=== PATIENT | female | born 1955 | race Two or more races ===

== ENCOUNTER → 2021-05-07 | Outpatient (CLI) | payer BC ==
[2021-05-07 09:11] LABS: Basophils # (auto) 0.1 10 ^3/uL (0-0.2); Basophils % (auto) 1.3 % (0.0-2.0); Eosinophils # (auto) 0.1 10 ^3/uL (0-0.8); Eosinophils % (auto) 3.3 % (0.0-7.0); Hematocrit 40.9 % (36.0-46.0); Hemoglobin 14.1 g/dL (12.2-16.2); Lymphocytes # (auto) 1.6 10 ^3/uL (0.4-5.4); Lymphocytes % (auto) 35.1 % (10.0-50.0); Mean Corpuscular Hemoglobin 33.3 pg (28.0-32.0); Mean Corpuscular Hgb Conc. 34.6 g/dL (32.0-36.0); Mean Corpuscular Volume 96.3 fL (80.0-100.0); Monocytes # (auto) 0.5 10 ^3/uL (0-1.3); Monocytes % (auto) 10.4 % (0.0-12.0); Neutrophils # (auto) 2.2 10 ^3/uL (1.6-8.6); Neutrophils % (auto) 49.9 % (37.0-80.0); Red Blood Cells 4.25 10^6/uL (4.0-5.20); Red Cell Distribution Width 13.3 % (11.8-14.3); White Blood Cell 4.4 10^3/uL (4.4-10.8)
[2021-05-07 09:18] LABS: Urine Bacteria NONE SEEN /hpf (None Seen); Urine Blood Negative /uL (Negative); Urine Mucus FEW (None Seen); Urine Specific Gravity 1.028 (1.001-1.035); Urine WBC 2 /hpf (0 - 5)
[2021-05-07 09:37] LABS: Potassium 4.2 mmol/L (3.5-5.1)
[2021-05-07 09:47] LABS: Albumin 3.5 g/dL (3.4-5.0); BUN/Creatinine Ratio 19.4; Bilirubin, Total 0.5 mg/dL (0.2-1.0); Calcium 9.3 mg/dL (8.5-10.1); Total Protein 7.2 g/dL (6.4-8.2)
== END | disposition home or self-care (01) ==
LOC: LAB 08:32
PROVIDERS: ATTEND Student in an Organized Health Care Education/Training Program
DX: Z12.11 Encounter for screening for malignant neoplasm of colon (principal); I10 Essential (primary) hypertension; R73.9 Hyperglycemia, unspecified
CPT/HCPCS: 36415; 80053; 80061; 81001; 82274; 83036; 84439; 84443; 85025

== ENCOUNTER 2023-04-19 11:48 | Inpatient (IN) | payer BC, MEDICARE ==
[~2023-04-19] VITALS: Ht 154.9 cm; Wt 60.0 kg
[2023-04-19] MEDS ORDERED: SODIUM CHLORIDE 0.9% 1,000 ML IV ONE (12:30)
[2023-04-19] MEDS ORDERED: METR375C PO ×2 (13:37)
[2023-04-19] MEDS ORDERED: ZOFR4T PO ×2 (13:37)
[2023-04-19 14:02] LABS: Basophils # (auto) 0.1 10 ^3/uL (0-0.2); Basophils % (auto) 0.6 % (0.0-2.0); Eosinophils # (auto) 0 10 ^3/uL (0-0.8); Eosinophils % (auto) 0.2 % (0.0-7.0); Hematocrit 40.9 % (36.0-46.0); Hemoglobin 14.1 g/dL (12.2-16.2); Lymphocytes # (auto) 1.1 10 ^3/uL (0.4-5.4); Lymphocytes % (auto) 11.7 % (10.0-50.0); Mean Corpuscular Hemoglobin 33.6 pg (28.0-32.0); Mean Corpuscular Hgb Conc. 34.5 g/dL (32.0-36.0); Mean Corpuscular Volume 97.3 fL (80.0-100.0); Monocytes # (auto) 0.5 10 ^3/uL (0-1.3); Monocytes % (auto) 5.5 % (0.0-12.0); Neutrophils # (auto) 7.7 10 ^3/uL (1.6-8.6); Red Blood Cells 4.21 10^6/uL (4.0-5.20); Red Cell Distribution Width 12.6 % (11.8-14.3); White Blood Cell 9.4 10^3/uL (4.4-10.8)
[2023-04-19 14:30] LABS: Albumin 3.8 g/dL (3.4-5.0); BUN/Creatinine Ratio 14.9 (10.0-20.0)
[2023-04-19 14:33] LABS: Bilirubin, Total 0.8 mg/dL (0.2-1.0); Total Protein 6.7 g/dL (6.4-8.2)
[2023-04-19] MEDS ORDERED: ENOXAPARIN SOD 60 MG/0.6 ML SYRINGE SC ONE (14:45)
[2023-04-19 16:23] LABS: Urine Bacteria FEW /hpf (None Seen); Urine Blood Negative /uL (Negative); Urine Specific Gravity 1.013 (1.001-1.035); Urine WBC 1 /hpf (0 - 5)
[2023-04-19 16:43] VITALS: PULSE 69; RESP 16; O2SAT 98
[2023-04-19] MEDS ORDERED: ACETAMINOPHEN 325 MG TAB PO PRN (16:45)
[2023-04-19] MEDS ORDERED: CLOPIDOGREL BISULFATE 75 MG TAB PO SCH (16:45)
[2023-04-19] MEDS ORDERED: ATORVASTATIN 20 MG TAB PO SCH (16:45)
[2023-04-19] MEDS ORDERED: DOCUSATE SOD 100 MG CAP PO PRN (16:45)
[2023-04-19] MEDS ORDERED: ONDANSETRON HCL 4 MG/2 ML VIAL IV PRN (16:45)
[2023-04-19] MEDS ORDERED: NITROGLYCERIN 0.4 MG SL TAB SL PRN (16:45)
[2023-04-19] MEDS ORDERED: HYDROmorphone HCL 2 MG/ML VL/or syr IV PRN (16:45)
[2023-04-19] MEDS ORDERED: HYDROcodone-ACET 5/325MG TAB PO PRN (16:45)
[2023-04-19] MEDS ORDERED: ASPirin-EC 325mg tab PO ONE (16:45)
[2023-04-19] MEDS ORDERED: MORPHINE SULFATE INJ 2 MG/ml SYRG IV PRN (16:45)
[2023-04-19] MEDS: METOPROLOL TARTRATE 25 MG TAB PO SCH ×2 (17:26→21:52)
[2023-04-19 17:46] LABS: Cholesterol 197 mg/dL (< 200)
[2023-04-19 17:49] LABS: HDL Cholesterol 71 mg/dL (40-59); LDL Cholesterol 109 mg/dL (< 100); Triglycerides 83 mg/dL (< 150)
[2023-04-19] MEDS ORDERED: HYDR12.59 PO (18:29)
[2023-04-19] MEDS ORDERED: ESCI1TAB36 PO (18:30)
[2023-04-19] MEDS ORDERED: LISI40TA16 PO (18:30)
[2023-04-19 19:35] VITALS: PULSE 70; RESP 16; O2SAT 95
[2023-04-19 21:16] LABS: INR 1.1 (0.9-1.15); Partial Thromboplastin Time 34.8 SEC (24.5-34.5)
[2023-04-19] MEDS: SODIUM CHLOR 0.9% PF (SALINE LOCK) 10ML VIAL/SYR IV SCH (21:52)
[2023-04-19] MEDS ORDERED: ENOXAPARIN SOD 60 MG/0.6 ML SYRINGE SC SCH (22:00)
[2023-04-20] VITALS (8 sets, daily range): BP systolic 103–121; BP diastolic 65–73; PULSE 60–75; RESP 15–19; TEMP 98; O2SAT 93–96
[2023-04-20] MEDS: SODIUM CHLOR 0.9% PF (SALINE LOCK) 10ML VIAL/SYR IV SCH (05:36)
[2023-04-20] MEDS ORDERED: ASPirin-EC 81 mg tab PO SCH (10:00)
[2023-04-20] MEDS ORDERED: IODIXANOL 320MG/ML 100ML BTL IV ONE (11:32)
[2023-04-20] MEDS ORDERED: LIDOCAINE 2%HCL (LOCAL ANESTH.) INJ 20ML MDV ONE (11:32)
[2023-04-20] MEDS ORDERED: ANGIOMAX 250 MG VIAL IV ONE (11:37)
[2023-04-20] MEDS ORDERED: fentaNYL CITRATE 100 MCG/2 ML VL ONE (11:38)
[2023-04-20] MEDS ORDERED: SODIUM CHL 0.9% 0 ML ONE (11:38)
[2023-04-20] MEDS ORDERED: VERAPAMIL 2.5MG/ML INJ 2ML VIAL IV ONE (11:38)
[2023-04-20] MEDS ORDERED: MIDAZOLAM HCL 2MG/2ML 2ml VIAL (1mg/ml) ONE (11:38)
[2023-04-20] MEDS ORDERED: HEPARIN SODIUM (PORCINE) 5000 UNITS/ML 1ML VIAL ONE (11:38)
[2023-04-20] MEDS ORDERED: NITROGLYCERIN 5MG/ML 10ML VIAL IV ONE (11:42)
[2023-04-20] MEDS ORDERED: SODIUM CHL 0.9% 50 ML ONE (11:42)
[2023-04-20] MEDS ORDERED: FLUT1SPR5 (14:13)
== END 2023-04-20 14:46 | disposition home or self-care (01) | DRG 282 ==
LOC: ER 11:48 → EDBD 11:48 → TELE 16:48 → TELE-EAST 04-20 10:38
PROVIDERS: ADMIT Internal Medicine; ATTEND Student in an Organized Health Care Education/Training Program
PROC: 4A023N7 Measurement of Cardiac Sampling and Pressure, Left Heart, Percutaneous Approach (ICD-10-PCS; principal; 2023-04-20)
PROC: B211YZZ Fluoroscopy of Multiple Coronary Arteries using Other Contrast (ICD-10-PCS; 2023-04-20)
DX: I21.4 Non-ST elevation (NSTEMI) myocardial infarction (principal); K52.9 Noninfective gastroenteritis and colitis, unspecified; I10 Essential (primary) hypertension; F41.9 Anxiety disorder, unspecified; K21.9 Gastro-esophageal reflux disease without esophagitis; I25.10 Atherosclerotic heart disease of native coronary artery without angina pectoris; Z90.49 Acquired absence of other specified parts of digestive tract; Z88.0 Allergy status to penicillin
CPT/HCPCS: 36415; 71045; 80053; 80061; 81001; 84484; 85025; 85610; 85730; 93005; 93306; 93458; 96360; 96372; 99152; 99153; G0378; J2250; J3490; Q9967

== ENCOUNTER 2023-12-01 10:07 | Emergency (ER) | payer MEDICARE ==
[~2023-12-01] VITALS: Ht 154.9 cm; Wt 55.6 kg
[~2023-12-01 10:07] MED LIST: ESCI1TAB36 PO; FLUT1SPR5; HYDR12.59 PO; LISI40TA16 PO
[2023-12-01 10:11] VITALS: TEMP 97.9
[2023-12-01 10:13] VITALS: BP 158/92; PULSE 79; RESP 16; O2SAT 98
[2023-12-01] MEDS: cefTRIAXone SOD 1,000 MG VL IM ONE (11:46)
[2023-12-01] MEDS ORDERED: CLIN300C70 PO (12:21)
== END 2023-12-01 12:25 | disposition home or self-care (01) ==
LOC: ER 10:07
DX: L03.114 Cellulitis of left upper limb (principal); I10 Essential (primary) hypertension; Z90.49 Acquired absence of other specified parts of digestive tract; Z88.0 Allergy status to penicillin; W55.01XA Bitten by cat, initial encounter; Y93.89 Activity, other specified; Y92.89 Other specified places as the place of occurrence of the external cause; Y99.8 Other external cause status
CPT/HCPCS: 96372; 99283; J0696

== ENCOUNTER 2024-06-03 15:08 | Emergency (ER) | payer MEDICARE ==
[~2024-06-03] VITALS: Ht 154.9 cm; Wt 57.0 kg
[~2024-06-03 15:08] MED LIST changes: +ATOR20TA PO; -ESCI1TAB36 PO; -FLUT1SPR5; -HYDR12.59 PO; +LISI-275 PO; -LISI40TA16 PO
[2024-06-03 15:26] VITALS: BP 131/80; PULSE 91; RESP 18; O2SAT 97
[2024-06-03 16:14] LABS: Urine Bacteria FEW /hpf (None Seen); Urine Blood Negative /uL (Negative); Urine Clarity Clear (Clear); Urine Protein, UAD Negative (Negative); Urine Specific Gravity 1.004 (1.001-1.035); Urine Urobilinogen Normal (Negative); Urine WBC 5 /hpf (0 - 5)
[2024-06-03 16:17] LABS: Urine Color Light-Yellow (Yellow)
[2024-06-03] MEDS ORDERED: NITR-52 PO (16:44)
== END 2024-06-03 17:54 | disposition home or self-care (01) ==
LOC: ER 15:08
DX: N39.0 Urinary tract infection, site not specified (principal); E78.5 Hyperlipidemia, unspecified; I10 Essential (primary) hypertension; Z90.49 Acquired absence of other specified parts of digestive tract; Z88.0 Allergy status to penicillin
CPT/HCPCS: 81001

== ENCOUNTER 2024-11-08 11:56 | Inpatient (IN) | payer MEDICARE ==
[~2024-11-08] VITALS: Ht 154.9 cm; Wt 67.7 kg
[~2024-11-08 11:56] MED LIST changes: +NITR-52 PO
--- NOTE | 2024-11-08 13:15 | ED.PDOC ---
Musculoskeletal HPI Comments History of hyperlipidemia and hypertension presents with a chief complaint of a possible fracture to the right ankle. Cause of injury: Patient reports being thrown off a horse then having her right foot and hearing a snap Pain rated 10/10 Not able to bear weight Denies previous surgeries to the ankle Denies redness or swelling around the ankle Denies fever chills night sweats nausea vomiting Chief Complaint: Lower Extremity Time Seen by MD: 12:40 Primary Care Provider: SINGH Reviewed Notes: Nurses Notes, Medications, Allergies Allergies: Coded Allergies: Penicillins (Verified Allergy, Severe, 04/19/23) Home Meds Active Scripts Nitrofurantoin (Nitrofurantoin) 100 Mg Cap, 1 CAP PO BID for 5 Days, #10 CAP Prov:AUDREY HULL PAC 06/03/24 Reported Medications Ezetimibe (Zetia) 10 Mg Tab, 1 TAB PO DAILY, #30 TAB 5 Refills 11/09/24 Lisinopril (Lisinopril) 20 Mg Tab, 10 MG PO DAILY, TAB 11/09/24 Discontinued Reported Medications Atorvastatin Calcium (Lipitor) 20 Mg Tab, 20 MG PO DAILY, TAB 12/14/23 Lisinopril (Lisinopril) 5 Mg Tab, 5 MG PO DAILY, TAB 12/14/23 Mode of Arrival: Wheelchair Past Medical History PAST MEDICAL HISTORY: High Lipids, HTN Surgical History: Cholecystectomy WASHER [place] History: Denies all WASHER [place] Hx Family History Family History: Unknown Social History Smoker: Non-Smoker Alcohol: Denies ETOH Use Drugs: Denies Drug Use Lives In: Home Physical Exam General Appearance: No Apparent Distress, Normal HEENT: Normal ENT Inspection, Pharynx Normal, TMs Normal Neck: Full Range of Motion, Non-Tender, Normal, Normal Inspection Respiratory: Chest Non-Tender, Lungs Clear, No Accessory Muscle Use, No Respiratory Distress, Normal Breath Sounds Cardiovascular: No Edema, No JVD, No Murmur, No Gallop, Normal Peripheral Pulses, Regular Rate/Rhythm Breast Exam: Deferred Gastrointestinal: No Organomegaly, Non Tender, No Pulsatile Mass, Normal Bowel Sounds, Soft Genitalia: Deferred Pelvic: Deferred Rectal: Deferred Extremities: No calf tenderness, Normal capillary refill, Normal inspection, Normal range of motion, Non-tender, No pedal edema Musculoskeletal : Location: Right Extremity Location: Ankle (He has deformity to the lateral malleolus. Tenderness to palpation. Pain with dorsiflexion plantar flexion. Dorsalis pedis 2+. Distal neuro sensation intact) Apperance: Normal Neurologic: Alert, mems process engineer II-XII nml as Tested, No Motor Deficits, Normal Affect, Normal Mood, No Sensory Deficits Cerebellar Function: Normal Reflexes: Normal Skin: Dry, Normal Color, Warm Lymphatic: No Adenopathy Was a procedure done? Was a procedure done?: No Differential Diagnosis EXT Differential Diagnosis: Fracture, Sprain, Dislocation X-Ray, Labs, Meds, VS Vital Signs Date Time Temp Pulse Resp B/P (MAP) Pulse Ox O2 Delivery O2 Flow Rate FiO2 11/08/24 18:47 78 16 122/84 11/08/24 18:04 85 16 126/76 11/08/24 14:57 79 16 127/68 11/08/24 13:47 88 17 111/78 11/08/24 13:04 87 17 97 Room Air 11/08/24 13:04 98.1 87 17 117/77 (90) 97 98.1 11/08/24 12:15 97.7 91 20 107/81 (90) 98 Current Medications Medications (Trade) Dose Ordered Sig/Finn Route Start Time Stop Time Status Last Admin Morphine Sulfate 2 mg ONCE ONCE IM 11/08/24 13:15 11/08/24 17:58 DC 11/08/24 13:47 Lidocaine HCl (Xylocaine 1%) 10 ml ONCE ONCE IJ 11/08/24 15:00 11/08/24 15:02 DC 11/08/24 15:15 Hydromorphone HCl (Dilaudid Injection) 0.25 mg ONCE ONCE IM 11/08/24 18:00 11/08/24 18:01 DC 11/08/24 18:04 PATIENT: BOO ARORA CACCT: [id number]: [id number] : 1955 LOC: ER ROOM / BED: / AGE / SEX: 68 / F ADM STATUS: REG ER SERVICE 1312 ORDERING PHYSICIAN: LUCIO ALVARENGA NP PROCEDURE(s): RANCT - CT R ANKLE WO CONTRAST REASON: fall from horse ORDER NUMBER(s): [id number], ACCESSION NUMBER(s): [id number] CLINICAL INDICATION: 68 years old, Female; fall from horse. TECHNIQUE: Noncontrast CT of the right ankle was performed. Sagittal and coronal reformatted images are provided. COMPARISON: None CT Dose: CTDI volume is 7.8 mGy. Dose-length product is 191.2 mGy*cm FINDINGS: Acute comminuted lateral and medial malleolus fractures and posterior malleolar fracture. There is disruption of the ankle mortise and lateral translation of the talus relative to the tibial performed compatible with dislocation. Ankle joint effusion and significant soft tissue swelling / hemorrhage in the ankle. Small foci of gas in the soft tissues. IMPRESSION: 1. Acute trimalleolar fracture and ankle joint dislocation. All CT scans at this medical facility are performed using dose modulation techniques as appropriate to a performed exam including the following: Automated exposure control was utilized; adjustment of the MA and/or KV according to patient size; and use of iterative reconstruction technique. HS:Y ATED BY: PHILL FAYE MD DICTATED DATE/TIME: 11/08/241335 SIGNED BY: PHILL FAYE MD SIGNED DATE/TIME: 11/08/241335 CC: X-Ray, Labs, Meds, VS Comment CT findings show: 1. Acute trimalleolar fracture and ankle joint dislocation. 1405: Consulted with ortho Dr Gao. Accepted patient for surgery. 1411: Dr. Gao called and stated ortho will reduce ankle at bedside 1615: Javon (orthodontic assistant at bedside) states Dr Gao requested splint and will reduce during surgery tomorrow Patients work up was remarkable for Acute trimalleolar fracture and ankle joint dislocation. The patient's workup reveals that the patient needs further evaluation and/or treatment for the above medical conditions. Patient verbalized understanding of the above and is awaiting further evaluation by the admitting service. Time of 1ST Reevaluation: 14:10 Reevaluation 1ST: Improved Patient Education/Counseling: Diagnosis, Treatment Family Education/Counseling: Diagnosis, Treatment Departure 1 Departure Time of Disposition: 16:17 Impression: Primary Impression: Trimalleolar fracture Qualified Codes: S82.851A - Displaced trimalleolar fracture of right lower leg, initial encounter for closed fracture Disposition: ADMITTED INPATIENT Condition: Fair Critical Care Note Critical Care Time?: No Stability Stability form required: No Heart Score Heart Score: Heart Score Response (Comments) Value History N/A 0 EKG N/A 0 Age N/A 0 Risk Factors N/A 0 Troponin N/A 0 Total 0 LUCIO ALVARENGA NP Nov 08, 2024 13:15
--- NOTE | 2024-11-08 13:39 | DVH ---
CLINICAL INDICATION: 68 years old, Female; fall from horse. TECHNIQUE: Noncontrast CT of the right ankle was performed. Sagittal and coronal reformatted images a re provided. COMPARISON: None CT Dose: CTDI volume is 7.8 mGy. Dose-length product is 191.2 mGy*cm FINDINGS: Acute comminuted lateral and medial malleolus fractures and posterior malleolar fracture. There is d isruption of the ankle mortise and lateral translation of the talus relative to the tibial performed compatible with dislocation. Ankle joint effusion and significant soft tissue swelling / hemorrhage i n the ankle. Small foci of gas in the soft tissues. IMPRESSION: 1. Acute trimalleolar fracture and ankle joint dislocation. All CT scans at this medical facility are performed using dose modulation techniques as appropriate t o a performed exam including the following: Automated exposure control was utilized; adjustment of th e MA and/or KV according to patient size; and use of iterative reconstruction technique. HS:Y
--- NOTE | 2024-11-08 13:41 | DVH ---
EXAM: CT HEAD WITHOUT CONTRAST INDICATION: fall from horse TECHNIQUE: CT of the head without intravenous contrast. Radiation Dose : 1. Head: CT Dose: CTDI volume is 56 mGy. Dose-length product is 999.8 mGy*cm The dose indicators for CT are the volume Computed Tomography (CT) Dose Index (CTDIvol) and the Dose Length Product (DLP), and are measured in units of mGy and mGy-cm, respectively. These indicators are not patient dose, but values generated from the CT scanner acquisition factors. The report includes radiation exposure data for exposures received during this examination. COMPARISON: None FINDINGS: There is no evidence of acute intracranial hemorrhage, extra-axial collection, mass effect, midline s hift, herniation or hydrocephalus. The ventricles, sulci and cisterns are age appropriate. The bailey-white differentiation is intact. Patchy periventricular and subcortical white matter hypoattenuation is nonspecific but may be related to small vessel ischemic disease. The visualized paranasal sinuses and mastoid air cells are clear. The surrounding soft tissues and osseous structures are unremarkable. IMPRESSION: No acute intracranial abnormality. Radiation optimization: All CT scans at this facility use at least one of these dose optimization anabelle hniques: automated exposure control mA and/or kV adjustment per patient size (includes targeted exam s where dose is matched to clinical indication) or iterative reconstruction.
[2024-11-08] MEDS: MORPHINE SULFATE INJ 2 MG/ml SYRG IM ONE (13:47)
[2024-11-08] MEDS: LIDOCAINE 1% HCL (LOCAL ANESTH.) INJ 20ML MDV IJ ONE (15:15)
[2024-11-08] MEDS: HYDROmorphone HCL 2 MG/ML VL/or syr IV ONE (17:59)
[2024-11-08] MEDS: HYDROmorphone HCL 2 MG/ML VL/or syr IM ONE ×2 (18:04→21:52)
[2024-11-08] MEDS: SODIUM CHLORIDE 0.9% 1,000 ML IV ONE (21:53)
[2024-11-08 22:05] LABS: Basophils # (auto) 0.1 10 ^3/uL (0-0.2); Basophils % (auto) 0.7 % (0.0-2.0); Eosinophils # (auto) 0 10 ^3/uL (0-0.8); Eosinophils % (auto) 0.3 % (0.0-7.0); Hematocrit 39.6 % (36.0-46.0); Hemoglobin 13.4 g/dL (12.2-16.2); Lymphocytes # (auto) 2.4 10 ^3/uL (0.4-5.4); Lymphocytes % (auto) 30.1 % (10.0-50.0); Mean Corpuscular Hemoglobin 31.9 pg (28.0-32.0); Mean Corpuscular Hgb Conc. 33.9 g/dL (32.0-36.0); Monocytes # (auto) 0.8 10 ^3/uL (0-1.3); Monocytes % (auto) 10.1 % (0.0-12.0); Neutrophils # (auto) 4.7 10 ^3/uL (1.6-8.6); Neutrophils % (auto) 58.8 % (37.0-80.0); Nucleated Red Blood Cells % 0.1 %; Platelet Count (auto) 316 10^3/uL (140-450); Red Blood Cells 4.21 10^6/uL (4.0-5.20); Red Cell Distribution Width 13.4 % (11.8-14.3)
[2024-11-08 22:16] LABS: Alanine Aminotransferase 25 U/L (7-40); Albumin 4.1 g/dL (3.2-4.8); Alkaline Phosphatase 51 U/L (46-116); Aspartate Aminotransferase 24 U/L (13-40); BUN/Creatinine Ratio 12.7 (10.0-20.0); Bilirubin, Total 0.7 mg/dL (0.2-1.0); Calcium 9.5 mg/dL (8.7-10.4); Chloride 105 mmol/L (98-107); Sodium 140 mmol/L (136-145); Total Protein 6.1 g/dL (5.7-8.2)
[2024-11-08 22:22] LABS: Anion Gap 10 (5-15); Carbon Dioxide 25 mmol/L (20-31)
[2024-11-08 22:39] LABS: Blood Urea Nitrogen 8 mg/dL (9-23); Glucose 125 mg/dL (74-106); Potassium 3.3 mmol/L (3.5-5.1)
[2024-11-09] VITALS (11 sets, daily range): BP systolic 105–127; BP diastolic 55–74; PULSE 75–91; RESP 16–20; TEMP 98–99.2; O2SAT 93–100
--- NOTE | 2024-11-09 00:09 | DVHHPRES ---
History of Present Illness Resident Creating Document: KELLEE REZA RESIDENT Reason for Visit: Right ankle injury History of Present Illness A 68-year-old female with a history of hyperlipidemia and hypertension presented to the emergency department with significant right ankle pain following a fall from a horse. She states that she was thrown off and landed on her right foot, at which point she heard a snapping sound. She rates the pain as 10/10 and is unable to bear weight. She denies any prior surgical history involving the ankle, as well as any associated redness, swelling, fever, chills, night sweats, nausea, or vomiting. Medical History: Chronic conditions: Hyperlipidemia, hypertension. Surgeries: Cholecystectomy. Gynecological History: Denies any gynecological surgeries. Home Medications: Atorvastatin 20 mg PO daily Lisinopril 5 mg PO daily Recent Prescriptions: Nitrofurantoin 100 mg PO BID for 5 days (prescribed 06/03/24) Allergies: Penicillin Imaging and Diagnostic Findings: A non-contrast CT of the right ankle revealed: Comminuted fractures of the lateral and medial malleoli, with an additional posterior malleolar fracture. Disruption of the ankle mortise with lateral displacement of the talus relative to the tibia, consistent with ankle dislocation. Joint effusion, extensive soft tissue swelling, and hemorrhage in the ankle. Presence of small gas pockets within the soft tissues. Impression: Acute trimalleolar fracture with ankle joint dislocation. Review of Systems Constitutional: No: Fever, Chills, Sweats, Weakness, Malaise, Other Eyes: No: Pain, Vision change, Conjunctivae inflammation, Eyelid inflammation, Other, Redness ENT: No: Ear pain, Ear discharge, Nose pain, Nose discharge, Nose congestion, Mouth pain, Mouth swelling, Throat pain, Throat swelling, Other Respiratory: No: Cough, Dry, Shortness of breath, SOB with excertion, Wheezing, Hemoptysis, Pleuritic Pain, Sputum, Wheezing, Other Cardiovascular: No: Chest Pain, Palpitations, Orthopnea, Paroxysmal Noc. Dyspnea, Edema, Lt Headedness, Other Gastrointestinal: No: Nausea, Vomiting, Abdominal Pain, Diarrhea, Constipation, Melena, Hematochezia, Other Genitourinary: No Dysuria, No Frequency, No Incontinence, No Hematuria, No Retention, No Other Musculoskeletal: No: other, neck pain, shoulder pain, arm pain, back pain, hand pain, leg pain, foot pain Skin: No: Rash, Lesions, Jaundice, Bruising, Other Neurological: No: Weakness, Numbness, Incoordination, Change in speech, Confusion, Seizures, Other Allergies: Coded Allergies: Penicillins (Verified Allergy, Severe, 04/19/23) Exam Vital Signs Vital Signs Date Time Temp Pulse Resp B/P (MAP) Pulse Ox O2 Delivery O2 Flow Rate FiO2 11/08/24 23:59 98.6 81 14 113/64 (80) 96 98.6 11/08/24 13:04 Room Air General Appearance: Alert, Oriented X3, Cooperative, moderate distress HEENT: Atraumatic, PERRLA, EOMI, Mucous membr. moist/pink Respiratory: Clear to auscultation, Normal air movement Cardiovascular: Regular rate, Normal S1, Normal S2 Abdominal: Normal bowel sounds, Soft Extremities: No clubbing, No cyanosis, No edema, Normal pulses, No tenderness/swelling, Other (splint in the right foot ) Skin: No rashes Neuro: Normal speech, Normal tone, Sensation intact, Cranial nerves 3-12 NL, Reflexes 2+ Psych/Mental Status: Mental status NL, Mood NL Labs/Xrays Labs Test 11/08/24 21:43 Range/Units White Blood Count 8.0 4.4-10.8 10^3/uL Red Blood Count 4.21 4.0-5.20 10^6/uL Hemoglobin 13.4 12.2-16.2 g/dL Hematocrit 39.6 36.0-46.0 % Mean Corpuscular Volume 94.0 80.0-100.0 fL Mean Corpuscular Hemoglobin 31.9 28.0-32.0 pg Mean Corpuscular Hemoglobin Concent 33.9 32.0-36.0 g/dL Red Cell Distribution Width 13.4 11.8-14.3 % Platelet Count 316 140-450 10^3/uL Mean Platelet Volume 8.0 6.9-10.8 fL Neutrophils (%) (Auto) 58.8 37.0-80.0 % Lymphocytes (%) (Auto) 30.1 10.0-50.0 % Monocytes (%) (Auto) 10.1 0.0-12.0 % Eosinophils (%) (Auto) 0.3 0.0-7.0 % Basophils (%) (Auto) 0.7 0.0-2.0 % Neutrophils # (Auto) 4.7 1.6-8.6 10 ^3/uL Lymphocytes # (Auto) 2.4 0.4-5.4 10 ^3/uL Monocytes # (Auto) 0.8 0-1.3 10 ^3/uL Eosinophils # (Auto) 0 0-0.8 10 ^3/uL Basophils # (Auto) 0.1 0-0.2 10 ^3/uL Nucleated Red Blood Cells 0.1 % Sodium Level 140 136-145 mmol/L Potassium Level 3.3 L 3.5-5.1 mmol/L Chloride Level 105 98-107 mmol/L Carbon Dioxide Level 25 20-31 mmol/L Anion Gap 10 5-15 Blood Urea Nitrogen 8 L 9-23 mg/dL Creatinine 0.63 0.550-1.02 mg/dL Glomerular Filtration Rate Calc 95 >90 mL/min BUN/Creatinine Ratio 12.7 10.0-20.0 Serum Glucose 125 H 74-106 mg/dL Hemoglobin A1c 5.4 <5.7 % A1C Calcium Level 9.5 8.7-10.4 mg/dL Total Bilirubin 0.7 0.2-1.0 mg/dL Aspartate Amino Transferase (AST) 24 13-40 U/L Alanine Aminotransferase (ALT) 25 7-40 U/L Alkaline Phosphatase 51 46-116 U/L Total Protein 6.1 5.7-8.2 g/dL Albumin 4.1 3.2-4.8 g/dL Thyroid Stimulating Hormone (TSH) 15.45 H 0.55-4.78 uIU/mL Assessment/Plan Assessment/Plan #Acute right trimalleolar fracture with ankle dislocation Deputy General Counsel on board Plan for surgical intervention: NPO after midnignht Splint applied for stabilization. Reduction planned during surgery. Pain control : hydromorphone and [place] EKG for clearance Chest Xray for clearance #Hypertension Hold on normal BP #Hyperlipidemia Atorvastatin 20 mg #Hypothyroidism - newly- TSH 15 T4 1.16 Levothyroxine 25 mcg #Hypokalemia K IV NS 75 cc/h Case discussed with Dr Grissom Time spent on care 23 min Plan discussed with: Patient, Daughter (rn), Other My Orders Orders - KELLEE REZA RESIDENT Procedure Category Date Status Time Admit ADMIT 11/08/24 Transmitted 21:24 Comprehensive LAB 11/08/24 In Process Metabolic Panel 21:24 Urinalysis LAB 11/08/24 Logged 21:24 Drug Screen LAB 11/08/24 Logged 21:24 Lipid Panel LAB 11/08/24 In Process 21:24 Electrocardigram EKG 11/08/24 Logged 21:28 Sodium Chloride 0.9% PHA 11/08/24 In Process 21:30 Cardiac DIET 11/09/24 Transmitted Diet-2gna,Lofat,Lochol Breakfast Free T4 (Free LAB 11/08/24 In Process Thyroxine) 23:51 Date of Service: Nov 08, 2024 Billing Provider: KRISTAN GRISSOM MD Common Visit Codes: [id number] INP/OBS CARE (HIGH) KELLEE REZA RESIDENT Nov 09, 2024 00:09 KRISTAN GRISSOM MD Nov 09, 2024 23:54
[2024-11-09] MEDS ORDERED: POTASSIUM CHL 20 Meq TABLET PO ONE (00:45)
[2024-11-09] MEDS ORDERED: EZET10TA22 PO (01:29)
[2024-11-09] MEDS ORDERED: LISI20TA56 PO (01:29)
[2024-11-09] MEDS: MORPHINE SULFATE INJ 2 MG/ml SYRG IV PRN (01:46)
[2024-11-09] MEDS: HYDROmorphone HCL 2 MG/ML VL/or syr IV PRN (03:59)
--- NOTE | 2024-11-09 05:26 | DVH ---
EXAM: XR Chest, 1 View CLINICAL INDICATION: dyspnea TECHNIQUE: Frontal view of the chest. COMPARISON: XY CHEST PORTABLE on DOS: 04/19/23 FINDINGS: LUNGS AND PLEURAL SPACES: Pulmonary venous congestion. No consolidation. No pneumothorax. HEART: Unremarkable. No cardiomegaly. MEDIASTINUM: Unremarkable. Normal mediastinal contour. BONES/JOINTS: Unremarkable. No acute fracture. OTHER FINDINGS: . None. . .. IMPRESSION: Pulmonary venous congestion.
[2024-11-09] MEDS: LEVOTHYROXINE SODIUM 25 MCG TAB PO SCH (05:52)
[2024-11-09 06:45] LABS: Urine Bacteria None Seen /hpf (None Seen)
[2024-11-09 06:59] LABS: Urine Blood Negative /uL (Negative); Urine Clarity Clear (Clear); Urine Color Light-Yellow (Yellow); Urine Protein, UAD Negative (Negative); Urine Specific Gravity 1.014 (1.001-1.035); Urine Squamous Epithelial Cell FEW /hpf (<5); Urine Urobilinogen Normal (Negative); Urine WBC 5 /HPF (0-5); Urine pH 5.5 (5.0-9.0)
[2024-11-09] MEDS: POTASSIUM CHLORIDE 40 MEQ, LIDOCAINE 1% (LOCAL ANESTH.) 4 ML in SODIUM CHL 0.9% 250 ML IV ONE (08:11)
[2024-11-09] MEDS ORDERED: PROPOFOL 10 MG/ML 20 ML IV ONE (11:13)
[2024-11-09] MEDS ORDERED: ROCURONIUM 10MG/ML 10ML VIAL IV ONE (11:13)
[2024-11-09] MEDS ORDERED: ONDANSETRON HCL 4 MG/2 ML VIAL IV ONE (11:15)
[2024-11-09] MEDS ORDERED: HYDROmorphone HCL 2 MG/ML VL/or syr IV PRN (11:15)
[2024-11-09] MEDS ORDERED: ePHEDrine SULFATE 50 MG/ML AMP IV PRN (11:15)
[2024-11-09] MEDS ORDERED: hydrALAZINE HCL 20 MG/ML VL IV PRN (11:15)
[2024-11-09] MEDS ORDERED: ROPIVACAINE 0.5% (5MG/ML) 20ML AMPULE IJ ONE ×2 (11:16→12:01)
--- NOTE | 2024-11-09 11:27 | DVHPN2 ---
Subjective patient in bed comfortable. Pain relieved with pain medicaion. Reviewed: Care Plan, H&P Changes from previous H/P or p: No Changes Eyes: No Pain, No Vision change, No Conjunctivae inflammation, No Eyelid inflammation, No Other, No Redness ENT: No Ear pain, No Ear discharge, No Nose pain, No Nose discharge, No Nose congestion, No Mouth pain, No Mouth swelling, No Throat pain, No Throat swelling, No Other Cardiovascular: No Chest Pain, No Palpitations, No Orthopnea, No Paroxysmal Noc. Dyspnea, No Edema, No Lt Headedness, No Other Respiratory: No Cough, No Dry, No Shortness of breath, No SOB with excertion, No Wheezing, No Hemoptysis, No Pleuritic Pain, No Sputum, No Other Gastrointestinal: No Nausea, No Vomiting, No Abdominal Pain, No Diarrhea, No Constipation, No Melena, No Hematochezia, No Other Genitourinary: No Dysuria, No Frequency, No Incontinence, No Hematuria, No Retention, No Other Musculoskeletal: No other, No neck pain, No shoulder pain, No arm pain, No back pain, No hand pain, No leg pain, No foot pain Skin: No Rash, No Lesions, No Jaundice, No Bruising, No Other Objective Vitals Vital Signs Date Time Temp Pulse Resp B/P (MAP) Pulse Ox O2 Delivery O2 Flow Rate FiO2 11/09/24 10:19 79 18 127/68 11/09/24 09:00 98.6 100 98.6 11/09/24 08:00 Room Air* 0 21 Intake/Output Intake and Output 11/09/24 07:00 Intake Total 0 ml Balance 0 ml Intake Oral 0 ml General Appearance: Oriented X3 HEENT: Atraumatic, PERRLA Cardiovascular: Regular rate, Normal S1, Normal S2 Abdomen: Normal bowel sounds Musculoskeletal: Other (RLE in Splint and wrapped. ) Extremities: No edema Neuro: No Normal gait Psych/Mental Status: Mental status NL Medications Current Medications Medications Dose Ordered Sig/Finn Route Start Time Stop Time Status Last Admin Dose Admin Levothyroxine Sodium 25 mcg QAM@0600 PO 11/09/24 06:00 Atorvastatin Calcium 20 mg HS PO 11/09/24 22:00 Acetaminophen 650 mg Q6HP PRN PO 11/09/24 01:30 Hydromorphone HCl 0.5 mg Q6HP PRN IV 11/09/24 03:45 11/09/24 10:19 0.5 MG Hydralazine HCl 5 mg Q10M PRN IV 11/09/24 11:15 11/09/24 12:06 Ephedrine Sulfate 10 mg Q10M PRN IV 11/09/24 11:15 11/09/24 11:56 Hydromorphone HCl 0.5 mg Q10M PRN IV 11/09/24 11:15 11/09/24 11:56 Laboratory Results Laboratory Tests 11/08/24 21:43 Chemistry Test 11/08/24 21:43 Albumin 4.1 g/dL (3.2-4.8) Calcium Level 9.5 mg/dL (8.7-10.4) Total Protein 6.1 g/dL (5.7-8.2) Lipid panel Test 11/08/24 21:43 Cholesterol Level Pending HDL Cholesterol Pending Triglycerides Level Pending LFT Test 11/08/24 21:43 Alanine Aminotransferase (ALT) 25 U/L (7-40) Alkaline Phosphatase 51 U/L (46-116) Aspartate Amino Transferase (AST) 24 U/L (13-40) Total Bilirubin 0.7 mg/dL (0.2-1.0) HgA1c, TSH Test 11/08/24 21:43 Hemoglobin A1c 5.4 % A1C (<5.7) Thyroid Stimulating Hormone (TSH) 15.45 uIU/mL (0.55-4.78) H Urinalysis Test 11/09/24 06:00 Urine Color Light-yellow (Yellow) Urine Clarity Clear (Clear) Urine pH 5.5 (5.0-9.0) Urine Specific [place] 1.014 (1.001-1.035) Urine Protein Negative (Negative) Urine Ketones Negative (Negative) Urine Blood Negative /uL (Negative) Urine Nitrite Negative (Negative) Urine Bilirubin Negative (Negative) Urine Urobilinogen Normal mg/dL (Negative) Urine Leukocyte Esterase 1+ /uL (Negative) Urine RBC 1 /hpf (0 - 4) Urine Microscopic WBC 5 /HPF (0-5) Urine Squamous Epithelial Cells Few /hpf (<5) Urine Bacteria None seen /hpf (None Seen) Urine Glucose Normal mg/dL (Normal) Assessment/Plan Assessment/Plan Assessment/Plan #Acute right trimalleolar fracture with ankle dislocation Consult Ortho/Pod - Surgery scheduled today Splint applied for stabilization. Reduction planned during surgery. Pain control : hydromorphone and [place] - Limit IVF fluids due to congestion. #Hypertension Hold on normal BP #Hyperlipidemia - Atorvastatin 20 mg #Hypothyroidism - new on admission. - Levothyroxine 25 mcg - follow up and adjust outpatient. Plan discussed with: Patient Date of Service: Nov 09, 2024 Billing Provider: CLEMENCIA JERRY MD Common Visit Codes: [id number] INP/OBS CARE(HIGH) CLEMENCIA JERRY MD Nov 09, 2024 11:27
[2024-11-09] MEDS ORDERED: CLINDAMYCIN 600MG IV 50 ML IV ONE (11:47)
--- NOTE | 2024-11-09 12:08 | DVHINCON2 ---
Date Seen: Nov 09, 2024 Reason for Consultation Right ankle fracture History of Present Illness A 68-year-old female with a history of hyperlipidemia and hypertension presented to the emergency department with significant right ankle pain following a fall from a horse. She states that she was thrown off and landed on her right foot, at which point she heard a snapping sound. She rates the pain as 10/10 and is unable to bear weight. She denies any prior surgical history involving the ankle, as well as any associated redness, swelling, fever, chills, night sweats, nausea, or vomiting. Past Medical History See H&P Past Surgical History See H&P Family History: Alcoholism Allergies: Coded Allergies: Penicillins (Verified Allergy, Severe, 04/19/23) Home Meds Active Scripts Nitrofurantoin (Nitrofurantoin) 100 Mg Cap, 1 CAP PO BID for 5 Days, #10 CAP Prov:AUDREY HULL PAC 06/03/24 Reported Medications Ezetimibe (Zetia) 10 Mg Tab, 1 TAB PO DAILY, #30 TAB 5 Refills 11/09/24 Lisinopril (Lisinopril) 20 Mg Tab, 10 MG PO DAILY, TAB 11/09/24 Discontinued Reported Medications Atorvastatin Calcium (Lipitor) 20 Mg Tab, 20 MG PO DAILY, TAB 12/14/23 Lisinopril (Lisinopril) 5 Mg Tab, 5 MG PO DAILY, TAB 12/14/23 Current Medications Current Medications Medications (Trade) Dose Ordered Sig/Finn Route PRN Reason Start Time Stop Time Status Last Admin Levothyroxine Sodium (Synthroid Tablet) 25 mcg QAM@0600 PO 11/09/24 06:00 Atorvastatin Calcium (Lipitor) 20 mg HS PO 11/09/24 22:00 Morphine Sulfate 2 mg Q6HPRN PRN IV SEVERE PAIN (7-10 PAIN SCALE) 11/09/24 01:30 11/09/24 03:52 DC 11/09/24 01:46 Acetaminophen (Tylenol Tablet) 650 mg Q6HP PRN PO MILD PAIN (1-3 PAIN SCALE) 11/09/24 01:30 Hydromorphone HCl (Dilaudid Injection) 0.5 mg Q6HP PRN IV SEVERE PAIN (7-10 PAIN SCALE) 11/09/24 03:45 11/09/24 10:19 Hydralazine HCl (Apresoline Injection) 5 mg Q10M PRN IV SBP>160 11/09/24 11:15 11/09/24 12:06 Ephedrine Sulfate (ePHEDrine SULFATE) 10 mg Q10M PRN IV SBP LESS THAN 90 11/09/24 11:15 11/09/24 11:56 DC Hydromorphone HCl (Dilaudid Injection) 0.5 mg Q10M PRN IV SEVERE PAIN (7-10 PAIN SCALE) 11/09/24 11:15 11/09/24 11:56 DC Vital Signs Vital Signs Date Time Temp Pulse Resp B/P (MAP) Pulse Ox O2 Delivery O2 Flow Rate FiO2 11/09/24 10:19 79 18 127/68 11/09/24 09:00 98.6 100 98.6 11/09/24 08:00 Room Air* 0 21 Physical Exam DERMATOLOGIC EXAM: - Skin is warm, smooth, and supple bilaterally. - No erythema noted to the foot and ankle bilaterally. - No hyperkeratotic lesions noted bilaterally. - No other discolorations, lesions, or open wounds noted bilaterally. VASCULAR EXAM: - DP and PT pulses are palpable bilaterally. 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 - No edema noted to the leg, foot, and ankle bilaterally. NEUROLOGIC EXAM: - Normal light touch sensation to the superficial peroneal, deep peroneal, sural, saphenous, and tibial nerve branches. - Protective sensation is intact as tested with a 5.07 10g Higbee-Sarika Monofilament bilaterally. - No paresthesia noted on percussion of Tibial Nerve in the Tarsal Tunnel bi laterally. MUSCULOSKELETAL EXAM: - tenderness swelling with deformity of the right ankle - Muscle strength is 5/5 and active motion is pain-free and symmetrical bilaterally with plantarflexion, dorsiflexion, abduction, adduction, inversion, and eversion against resistance. - No pain or crepitus with passive range of motion bilaterally to all major pedal joints. Labs/Diagnostic Data Labs Test 11/09/24 06:00 11/08/24 21:43 Range/Units Urine Color Light-yellow Yellow Urine Clarity Clear Clear Urine pH 5.5 5.0-9.0 Urine Specific [place] 1.014 1.001-1.035 Urine Protein Negative Negative Urine Ketones Negative Negative Urine Blood Negative Negative /uL Urine Nitrite Negative Negative Urine Bilirubin Negative Negative Urine Urobilinogen Normal Negative mg/dL Urine Leukocyte Esterase 1+ Negative /uL Urine RBC 1 0 - 4 /hpf Urine Microscopic WBC 5 0-5 /HPF Urine Squamous Epithelial Cells Few <5 /hpf Urine Bacteria None seen None Seen /hpf Urine Glucose Normal Normal mg/dL White Blood Count 8.0 4.4-10.8 10^3/uL Red Blood Count 4.21 4.0-5.20 10^6/uL Hemoglobin 13.4 12.2-16.2 g/dL Hematocrit 39.6 36.0-46.0 % Mean Corpuscular Volume 94.0 80.0-100.0 fL Mean Corpuscular Hemoglobin 31.9 28.0-32.0 pg Mean Corpuscular Hemoglobin Concent 33.9 32.0-36.0 g/dL Red Cell Distribution Width 13.4 11.8-14.3 % Platelet Count 316 140-450 10^3/uL Mean Platelet Volume 8.0 6.9-10.8 fL Neutrophils (%) (Auto) 58.8 37.0-80.0 % Lymphocytes (%) (Auto) 30.1 10.0-50.0 % Monocytes (%) (Auto) 10.1 0.0-12.0 % Eosinophils (%) (Auto) 0.3 0.0-7.0 % Basophils (%) (Auto) 0.7 0.0-2.0 % Neutrophils # (Auto) 4.7 1.6-8.6 10 ^3/uL Lymphocytes # (Auto) 2.4 0.4-5.4 10 ^3/uL Monocytes # (Auto) 0.8 0-1.3 10 ^3/uL Eosinophils # (Auto) 0 0-0.8 10 ^3/uL Basophils # (Auto) 0.1 0-0.2 10 ^3/uL Nucleated Red Blood Cells 0.1 % Sodium Level 140 136-145 mmol/L Potassium Level 3.3 L 3.5-5.1 mmol/L Chloride Level 105 98-107 mmol/L Carbon Dioxide Level 25 20-31 mmol/L Anion Gap 10 5-15 Blood Urea Nitrogen 8 L 9-23 mg/dL Creatinine 0.63 0.550-1.02 mg/dL Glomerular Filtration Rate Calc 95 >90 mL/min BUN/Creatinine Ratio 12.7 10.0-20.0 Serum Glucose 125 H 74-106 mg/dL Hemoglobin A1c 5.4 <5.7 % A1C Calcium Level 9.5 8.7-10.4 mg/dL Total Bilirubin 0.7 0.2-1.0 mg/dL Aspartate Amino Transferase (AST) 24 13-40 U/L Alanine Aminotransferase (ALT) 25 7-40 U/L Alkaline Phosphatase 51 46-116 U/L Total Protein 6.1 5.7-8.2 g/dL Albumin 4.1 3.2-4.8 g/dL Thyroid Stimulating Hormone (TSH) 15.45 H 0.55-4.78 uIU/mL Free Thyroxine (T4) Calculated 1.16 0.89-1.76 ng/dL Problems(with codes): (1) NSTEMI (non-ST elevated myocardial infarction) (2) Gastroenteritis (3) Cellulitis (4) Cat bite (5) UTI (urinary tract infection) (6) Trimalleolar fracture Plan/Recommendation ASSESSMENT: Patient is a 68-year-old seen on the floor for a right ankle fracture dislocation PLAN: - The patients chart was reviewed, clinical findings were discussed with the patient, the etiologies of the conditions were discussed in detail, and a treatment plan was agreed to at this time, with both oral and written instructions provided. - reviewed advanced imaging - recommend that we take the patient to the OR for a right ankle ORIF - patient will be nonweightbearing for approximately 6 weeks - we will need a knee scooter for the patient - patient we will need aspirin for 2 weeks - patient NPO since midnight All questions were answered and concerns addressed to the patient's sati sfaction. The patient was given the phone number to the clinic and was told how to make contact with the clinic should any concerns or questions arise. Patient understands that if any questions or concerns arise prior to the next appointment, we should be contacted immediately. FOLLOW-UP: Patient will follow up with me 2 weeks after surgery The patient is scheduled for right ankle ORIF on 11/09/2024. We reviewed the surgical procedure, the expected recovery and the patient's needs post- operatively. The patient was also given written and verbal pre-operative and post-operative instructions. The benefits of surgery were reviewed which include reduction in pain and increased function. The risks of surgery were reviewed with the patient and include but are not limited to infection, pain, bleeding, numbness, scarring, delayed wound healing, loss of soft tissue or bone, non- union, malunion or delayed-union of bone, joint stiffness, painful hardware, failure of hardware, and potential need for additional surgery. Loss of limb or life. Risks associated with anesthesia. All of the patient's questions were answered to their satisfaction. Informed consent was obtained, signed, and is in the patient's chart. No guarantees were given or implied. I anticipate maintaining the patient _ weight bearing in a fracture boot post-operatively. A prescription for post-operative pain medication will be dispensed for Oxycodone 5mg and Zofran 4mg. Please note that the database on [facility] was accessed and the patient was assessed for prior prescriptions. In prescribing opioid therapy for the management of pain, I have reviewed with the patient?: 1) the reasons why this medication is necessary, as well as realistic goals for pain and function; 2) alternative treatment options available, including tylenol; 3) the risks of addiction and overdose associated with opioid medications; 4) the dangers of taking opioids with alcohol, benzodiazepines, and other [employer] depressants; and 5) other risks associated with the use of this medication. I discussed the procedure today with the patient and answered their questions to their satisfaction. We discussed the post op period as well as the time of non weight bearing anticipated. We talked about the risks, benefits and alternatives. I discussed the risks of the procedure which include but is not limited to infection, damage to neurovascular structures, complex regional pain syndrome, DVT, pulmonary embolism as well as anesthesia related risks. Despite these the patient would like to proceed. Informed consent was obtained and we offered a copy to the patient. Absolutely no guarantees were given or implied. I explained that I cannot guarantee this will alleviate all pain and symptoms and their expectations appear realistic. I assessed their DVT risk and I will go ahead and prophylax with 81mg Aspirin twice per day. I will see the patient 14 days post op. Plan discussed with: Patient Date of Service: Nov 09, 2024 Billing Provider: SURESH ZEPEDA DPM Common Visit Codes: CONSULT ONLY Consultation Codes: [id number] CONSULT <80MIN SURESH ZEPEDA DPM Nov 09, 2024 12:08
[2024-11-09] MEDS ORDERED: MORPHINE SULF PF 5 MG/10 ML VIAL ONE (13:03)
[2024-11-09] MEDS ORDERED: ONDANSETRON HCL 4 MG/2 ML VIAL ONE (13:04)
[2024-11-09] MEDS ORDERED: DexAMETHasone SOD PHOS 10MG/1ML VIAL INJ ONE (13:04)
[2024-11-09] MEDS ORDERED: KETOROLAC TROMETH 30 MG/ML 1ML VIAL ONE (13:04)
[2024-11-09] MEDS: BUPIVACAINE 0.5% MPF INJ 30ML SDV IJ ONE (13:12)
[2024-11-09 13:14] LABS: Triglycerides 59 mg/dL (< 150)
[2024-11-09 13:16] LABS: Cholesterol 173 mg/dL (< 200); LDL Cholesterol 100 mg/dL (< 100)
[2024-11-09 13:21] LABS: Opiate Scree,Urine Pos (NEGATIVE)
[2024-11-09 13:30] LABS: HDL Cholesterol 65 mg/dL (40-59)
[2024-11-09 13:31] LABS: Amphetamine Screen, Urine Neg (NEGATIVE); Barbiturate Scree,Urine Neg (NEGATIVE); Benzodiazephine Screen, Urine Neg (NEGATIVE); Cannabinoid Screen, Urine Neg (NEGATIVE); Cocaine Screen, Urine Neg (NEGATIVE); Phencyclidine Screen, Urine Neg (NEGATIVE)
[2024-11-09] MEDS ORDERED: SUGAMMADEX 200mg/2ml Vial (100MG/ML) IV ONE (13:44)
--- NOTE | 2024-11-09 14:45 | DVH ---
FLUOROSCOPY TIME: 15 seconds TECHNIQUE: Intraoperative radiographs of the right ankle were obtained. COMPARISON: None FINDINGS: Refer to intraoperative report for further evaluation. IMPRESSION: Refer to intraoperative report for further evaluation.
--- NOTE | 2024-11-09 15:58 | DVHOP2 ---
Operative Report - 2 Report Details Date: 11/09/24 Preop Diagnosis: 1. Right ankle trimalleolar fracture Postop Diagnosis: Same as preop Surgeon: Suresh Zepeda MD Anesthesiologist: See anesthesia Anesthesia: General Implant: Arthrex fibular plate with screws Arthrex tight rope Arthrex 4.0 x 44mm (2) Consent: The patient was informed of the risks and benefits of the procedure. These include but are not limited to complications of anesthesia, postoperative infection, incomplete relief of symptoms, recurrence of symptoms, damage to blood vessels, nerves and tendons, deep venous thrombosis, pulmonary embolism and possible need for repeat surgery in the future. Complications: None Estimated Blood Loss: Minimal Fluids: See anesthesia Findings: Consistent with diagnosis Indications for Surgery: On an unstable ankle fracture Name of Procedure Performed 1. Right right ankle ORIF (50680) Procedure Details Procedure Details: PRE-PROCEDURE INFORMATION: In the pre-op holding area, the extremity to be operated on was clearly marked and the patient verified correct laterality of the marking. The patient was transferred to the OR table and placed in a supine position. A timeout was performed in which identification of the correct patient, procedure, location, and materials was done. The right foot and leg were prepped and draped in normal sterile fashion. The foot and leg were exsanguinated and the thigh tourniquet was inflated to 50 mmHg. DESCRIPTION OF PROCEDURE: Attention was directed to the right lateral leg with a fibula fracture was located. A linear longitudinal incision was made on the lateral leg. This incision was deepened with sharp and blunt dissection to the level of the periosteum. Care was taken throughout the dissection to avoid damage to the neurovascular structures in the peroneal tendons. A periosteal elevator was used to reflect all the soft tissue and periosteum from the bone in the fracture fragment. The fracture was visualized and any unwanted debris was removed from the fracture. Utilizing standard open reduction techniques, the fibular fracture was adequately reduced once temporary fixated with a bone reduction forceps. A locking plate with accompanying screws were then placed in the lateral fibula for permanent internal fixation. It was noted in the intraoperative fluoroscopy the adequate reduction of the deformity was obtained as well as adequate lengthening of the fibula back to its original length. All hardware was adequately placed verified on fluoroscopy as well. Attention was directed to the right medial ankle where the medial malleolus fracture was located. A linear longitudinal incision was made on the medial aspect of the leg. The incision was deepened with sharp and blunt dissection to the periosteum. Care seen throughout the dissection to avoid damage to the neurovascular and tendinous structures. Periosteal elevator was used to reflect all soft tissue and periosteum from the bone in the fracture fragment. The fracture was visualized any unwanted debris was removed from the fracture. Using standard open reduction techniques, a 4.0 x 44 mm screw was placed into the medial malleolus. The subsequent screw was then placed parallel to that initial screw. It was noted in intraoperative fluoroscopy that adequate reduction of the fracture was obtained as well as adequate placement of the hardware. Attention was then directed back to the right lateral leg where hook test was performed. It was noted after the hook test performed that there was gapping medially indicating that syndesmosis was ruptured. A tight rope was then drilled using a 4-0 drill. The suture tape was then placed to the medial side and cinched down. It was noted that after the tight rope was placed who quit reduction and appropriate placement of hardware was noted. The wound was then closed with 2-0 Vicryl, 3-0 Monocryl, 4-0 nylon. All surgical wounds were irrigated copiously with saline and closed in layers with the aforementioned suture material. A dry sterile dressing was placed on the surgical extremity. The patient was placed in a posterior splint POSTOPERATIVE INFORMATION: The patient tolerated the above noted procedure and anesthesia well and was transferred to the PACU with vital signs stable, and vascular status intact with capillary refill intact to all digits. Postoperative instructions reviewed in detail with the patient with written instructions provided. Patient will return to clinic in approximately 10-14 days for first postoperative visit. Patient has the number of the clinic and was instructed to call prior to that time should any problems, questions, or concerns arise. - patient will be nonweightbearing using crutches and a scooter for 6 weeks - patient will need a prescription for doxycycline 100 mg taken b.i.d. for 1 week - patient will need aspirin 81 mg b.i.d. for 2 weeks Condition Good Disposition Still a Patient SURESH ZEPEDA DPM Nov 09, 2024 15:57
[2024-11-09 17:13] LABS: Alkaline Phosphatase 53 U/L (46-116); Anion Gap 7 (5-15); Bilirubin, Total 0.9 mg/dL (0.2-1.0); Calcium 9.1 mg/dL (8.7-10.4); Carbon Dioxide 25 mmol/L (20-31); Potassium 3.7 mmol/L (3.5-5.1); Sodium 139 mmol/L (136-145); Total Protein 5.9 g/dL (5.7-8.2)
[2024-11-09 17:14] LABS: Alanine Aminotransferase 48 U/L (7-40); Aspartate Aminotransferase 64 U/L (13-40); BUN/Creatinine Ratio 8.9 (10.0-20.0); Blood Urea Nitrogen < 5 mg/dL (9-23); Chloride 107 mmol/L (98-107); Glucose 135 mg/dL (74-106)
[2024-11-09] MEDS: ATORVASTATIN 20 MG TAB PO SCH (21:44)
[2024-11-10 01:00] VITALS: BP 101/56; PULSE 80; RESP 18; TEMP 98.2; O2SAT 92
[2024-11-10 05:00] VITALS: BP 109/62; PULSE 78; RESP 18; TEMP 98.4; O2SAT 95
[2024-11-10 06:34] LABS: Basophils # (auto) 0 10 ^3/uL (0-0.2); Basophils % (auto) 0.2 % (0.0-2.0); Eosinophils # (auto) 0 10 ^3/uL (0-0.8); Hematocrit 35.9 % (36.0-46.0); Hemoglobin 12.2 g/dL (12.2-16.2); Lymphocytes # (auto) 1.2 10 ^3/uL (0.4-5.4); Lymphocytes % (auto) 12.7 % (10.0-50.0); Monocytes # (auto) 1.1 10 ^3/uL (0-1.3); Monocytes % (auto) 11.5 % (0.0-12.0); Neutrophils # (auto) 7.3 10 ^3/uL (1.6-8.6); Neutrophils % (auto) 75.6 % (37.0-80.0); Nucleated Red Blood Cells % 0.1 %; Platelet Count (auto) 273 10^3/uL (140-450); Red Blood Cells 3.81 10^6/uL (4.0-5.20); Red Cell Distribution Width 13.3 % (11.8-14.3); White Blood Cell 9.6 10^3/uL (4.4-10.8)
[2024-11-10 06:43] LABS: Chloride 105 mmol/L (98-107); Potassium 3.8 mmol/L (3.5-5.1); Sodium 140 mmol/L (136-145)
[2024-11-10 06:44] LABS: Anion Gap 8 (5-15); Calcium 9.4 mg/dL (8.7-10.4); Carbon Dioxide 27 mmol/L (20-31)
[2024-11-10 06:49] LABS: Blood Urea Nitrogen 11 mg/dL (9-23); Glucose 118 mg/dL (74-106)
[2024-11-10 08:00] VITALS: PULSE 75; PULSE 98; RESP 18; O2SAT 97
[2024-11-10 09:00] VITALS: BP 116/61; PULSE 98; RESP 18; TEMP 98.8; O2SAT 97
[2024-11-10] MEDS ORDERED: ATOR20TA50 PO (11:00)
[2024-11-10] MEDS ORDERED: HYDR-4902 PO (11:00)
[2024-11-10] MEDS ORDERED: DOXY100C79 PO (11:00)
[2024-11-10] MEDS ORDERED: LEVO25TA6 PO (11:00)
[2024-11-10] MEDS ORDERED: ASPI1TAB20 PO (11:00)
[2024-11-10] MEDS ORDERED: ACET-1882 PO (11:00)
--- NOTE | 2024-11-10 11:10 | DVHDS2 ---
Discharge Summary Date of Admission Nov 08, 2024 at 21:24 Date of Discharge: Nov 10, 2024 Admitting Diagnosis #Acute right trimalleolar fracture with ankle dislocation Labs/Diagnostic Data: Laboratory Results Test 11/10/24 05:27 11/09/24 16:20 11/09/24 06:00 11/08/24 21:43 White Blood Count 9.6 10^3/uL (4.4-10.8) Red Blood Count 3.81 10^6/uL (4.0-5.20) Hemoglobin 12.2 g/dL (12.2-16.2) Hematocrit 35.9 % (36.0-46.0) Mean Corpuscular Volume 94.0 fL (80.0-100.0) Mean Corpuscular Hemoglobin 32.0 pg (28.0-32.0) Mean Corpuscular Hemoglobin Concent 34.0 g/dL (32.0-36.0) Red Cell Distribution Width 13.3 % (11.8-14.3) Platelet Count 273 10^3/uL (140-450) Mean Platelet Volume 8.2 fL (6.9-10.8) Neutrophils (%) (Auto) 75.6 % (37.0-80.0) Lymphocytes (%) (Auto) 12.7 % (10.0-50.0) Monocytes (%) (Auto) 11.5 % (0.0-12.0) Eosinophils (%) (Auto) 0.0 % (0.0-7.0) Basophils (%) (Auto) 0.2 % (0.0-2.0) Neutrophils # (Auto) 7.3 10 ^3/uL (1.6-8.6) Lymphocytes # (Auto) 1.2 10 ^3/uL (0.4-5.4) Monocytes # (Auto) 1.1 10 ^3/uL (0-1.3) Eosinophils # (Auto) 0 10 ^3/uL (0-0.8) Basophils # (Auto) 0 10 ^3/uL (0-0.2) Nucleated Red Blood Cells 0.1 % Sodium Level 140 mmol/L (136-145) Potassium Level 3.8 mmol/L (3.5-5.1) Chloride Level 105 mmol/L (98-107) Carbon Dioxide Level 27 mmol/L (20-31) Anion Gap 8 (5-15) Blood Urea Nitrogen 11 mg/dL (9-23) Creatinine 0.61 mg/dL (0.550-1.02) Glomerular Filtration Rate Calc 96 mL/min (>90) BUN/Creatinine Ratio 18.0 (10.0-20.0) Serum Glucose 118 mg/dL (74-106) Calcium Level 9.4 mg/dL (8.7-10.4) Total Bilirubin 0.9 mg/dL (0.2-1.0) Aspartate Amino Transferase (AST) 64 U/L (13-40) Alanine Aminotransferase (ALT) 48 U/L (7-40) Alkaline Phosphatase 53 U/L (46-116) Total Protein 5.9 g/dL (5.7-8.2) Albumin 4.0 g/dL (3.2-4.8) Urine Color Light-yellow (Yellow) Urine Clarity Clear (Clear) Urine pH 5.5 (5.0-9.0) Urine Specific [place] 1.014 (1.001-1.035) Urine Protein Negative (Negative) Urine Ketones Negative (Negative) Urine Blood Negative /uL (Negative) Urine Nitrite Negative (Negative) Urine Bilirubin Negative (Negative) Urine Urobilinogen Normal mg/dL (Negative) Urine Leukocyte Esterase 1+ /uL (Negative) Urine RBC 1 /hpf (0 - 4) Urine Microscopic WBC 5 /HPF (0-5) Urine Squamous Epithelial Cells Few /hpf (<5) Urine Bacteria None seen /hpf (None Seen) Urine Glucose Normal mg/dL (Normal) Urine Opiates Screen Pos (NEGATIVE) Urine Fentanyl Screen Neg (NEGATIVE) Urine Barbiturates Screen Neg (NEGATIVE) Urine Phencyclidine Screen Neg (NEGATIVE) Urine Amphetamines Screen Neg (NEGATIVE) Urine Benzodiazepines Screen Neg (NEGATIVE) Urine Cocaine Screen Neg (NEGATIVE) Urine Cannabinoids Screen Neg (NEGATIVE) Hemoglobin A1c 5.4 % A1C (<5.7) Triglycerides Level 59 mg/dL (< 150) Cholesterol Level 173 mg/dL (< 200) LDL Cholesterol 100 mg/dL (< 100) HDL Cholesterol 65 mg/dL (40-59) Thyroid Stimulating Hormone (TSH) 15.45 uIU/mL (0.55-4.78) Free Thyroxine (T4) Calculated 1.16 ng/dL (0.89-1.76) Other Laboratory Tests 11/10/24 05:27 Brief Hx & Hospital Course: HPI on admission. A 68-year-old female with a history of hyperlipidemia and hypertension presented to the emergency department with significant right ankle pain following a fall from a horse. She states that she was thrown off and landed on her right foot, at which point she heard a snapping sound. She rates the pain as 10/10 and is unable to bear weight. She denies any prior surgical history involving the ankle, as well as any associated redness, swelling, fever, chills, night sweats, nausea, or vomiting. Image . CT ankle Acute comminuted lateral and medial malleolus fractures and posterior malleolar fracture. There is disruption of the ankle mortise and lateral translation of the talus relative to the tibial performed compatible with dislocation. Ankle joint effusion and significant soft tissue swelling / hemorrhage in the ankle. Small foci of gas in the soft tissues. IMPRESSION: 1. Acute trimalleolar fracture and ankle joint dislocation. Surgery performed on 11/09 Name of Procedure Performed 1. Right right ankle ORIF (36540) patient tolerated the above noted procedure and anesthesia well and was transferred to the PACU with vital signs stable, and vascular status intact with capillary refill intact to all digits. Postoperative instructions reviewed in detail with the patient with written instructions provided. Patient will return to clinic in approximately 10-14 days for first postoperative visit. Patient has the number of the clinic and was instructed to call prior to that time should any problems, questions, or concerns arise. - patient will be nonweightbearing using crutches and a scooter for 6 weeks - patient will need a prescription for doxycycline 100 mg taken b.i.d. for 1 week - patient will need aspirin 81 mg b.i.d. for 2 weeks Consults/Reason for consult Podiatry Condition at Discharge: Good Final Diagnosis/Problems List Same as preop Discharge Disposition: Still a Patient Discharge Instruct/Medications Diet: Regular Activity: See Comment Activity comment: non weight bearing R leg. Follow Up/Referral: - patient will be nonweightbearing using crutches and a scooter for 6 weeks - prescription for doxycycline 100 mg taken b.i.d. for 1 week - aspirin 81 mg b.i.d. for 2 weeks Discharge Statement: "Patient was advised to return to the ER or call 911 if any headaches, dizziness, shortness of breath, chest pain, abdominal pain, bleeding, fevers, or worsening of medical condition. Patient was counseled about treatment plan, medications, possible side effects, patientverbalized understanding. All questions were answered to the best of my ability. This discharge took greater then 30 minutes in planning, reviewing documentation, counseling the patient, and discussing with other team members." ASSESSMENT ASSESSMENT Assessment 1. Right ankle trimalleolar fracture s/p rght ankle ORIF. Date of Service: Nov 10, 2024 Billing Provider: CLEMENCIA JRERY MD Common Visit Codes: 79738-[id number] DISCH DAY >30min CLEMENCIA JERRY MD Nov 10, 2024 11:10
[2024-11-10] MEDS ORDERED: HYDR1TAB97 PO (11:45)
[2024-11-10 13:00] VITALS: BP 110/62; PULSE 86; RESP 17; TEMP 98.4; O2SAT 95
[2024-11-10 13:03] VITALS: BP 110/62; PULSE 86; RESP 17; TEMP 98.4; O2SAT 95
[2024-11-10] MEDS: ACETAMINOPHEN 325 MG TAB PO PRN (14:35)
--- NOTE | 2024-11-12 11:03 | ECG ---
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
== END 2024-11-10 18:49 | disposition home or self-care (01) | DRG 494 ==
LOC: ER 11:56 → OVERFLOW 21:24 → CENTRAL 23:47 → OVERFLOW 11-09 12:38 → TELE-CENTR 11-09 12:40
PROVIDERS: ATTEND Family Medicine
PROC: 0QSJ04Z Reposition Right Fibula with Internal Fixation Device, Open Approach (ICD-10-PCS; 2024-11-09)
PROC: 0QSG04Z Reposition Right Tibia with Internal Fixation Device, Open Approach (ICD-10-PCS; principal; 2024-11-09 12:10)
DX: S82.851A Displaced trimalleolar fracture of right lower leg, initial encounter for closed fracture (principal); E78.5 Hyperlipidemia, unspecified; I10 Essential (primary) hypertension; E87.6 Hypokalemia; E03.9 Hypothyroidism, unspecified; Z90.49 Acquired absence of other specified parts of digestive tract; Z79.899 Other long term (current) drug therapy; V80.010A Animal-rider injured by fall from or being thrown from horse in noncollision accident, initial encounter; Y93.89 Activity, other specified; Y92.89 Other specified places as the place of occurrence of the external cause; Y99.8 Other external cause status
CPT/HCPCS: 36415; 70450; 71045; 73600; 73700; 76000; 80048; 80053; 80061; 80307; 81001; 83036; 84439; 84443; 85025; 93005; 96372; 97163; G0378; J1100; J1885; J2003; J2405; J2704; J3490

== ENCOUNTER 2024-12-05 07:02 | Emergency (ER) | payer MEDICARE ==
[~2024-12-05] VITALS: Ht 154.9 cm; Wt 55.0 kg
[~2024-12-05 07:02] MED LIST changes: +ACET-1882 PO; +ASPI1TAB20 PO; -ATOR20TA PO; +ATOR20TA50 PO; +DOXY100C79 PO; +EZET10TA22 PO; +HYDR-4902 PO; +HYDR1TAB97 PO; +LEVO25TA6 PO; -LISI-275 PO; +LISI20TA56 PO; -NITR-52 PO
--- NOTE | 2024-12-05 07:30 | ED.PDOC ---
General HPI Comments 68-year-old female with PMHx HLD, HTN presents with a chief complaint of urinary burning, frequency, dysuria, and diarrhea x 1 day. Patient states that she feels a 8/10 burning sensation whenever she urinates and believes that she has a UTI. Patient mentions that she usually gets these symptoms whenever she has a UTI. Patient denies any vaginal bleeding or difficulty urinating. No other symptoms or modifying factors present at this time. Time Seen by MD: 07:24 Primary Care Provider: SAMANTHA Reviewed notes: Medications, Allergies Allergies: Coded Allergies: Penicillins (Verified Allergy, Severe, 04/19/23) Home Meds Active Scripts Hydrocodone-Acetaminophen (Hydrocodone/Acetaminophen 5-325 mg) 1 Tab Tab, 1 TAB PO TIDP PRN for 3 Days, #9 TAB Prov:SHIRA NETTLES MD 11/10/24 Aspirin (Aspir-81) 81 Mg Tab, 1 TAB PO DAILY for 14 Days, #14 TAB 0 Refills Prov:CLEMENCIA JERRY MD 11/10/24 Doxycycline (Monohydrate) (Doxycycline) 100 Mg Cap, 100 MG PO BID for 42 Days, #84 CAP Prov:CLEMENCIA JERRY MD 11/10/24 Hydrocodone-Acetaminophen (Hydrocodone Bitartrate/AC 5-325 mg) 1 Tab Tab, 1 TAB PO Q8HPRN PRN for 3 Days, #9 TAB Prov:CLEMENCIA JERRY MD 11/10/24 Levothyroxine Sodium (Levothyroxine Sodium) 25 Mcg Tab, 25 MCG PO QAM@0600 for 30 Days, #30 TAB Prov:CLEMENCIA JERRY MD 11/10/24 Atorvastatin Calcium (ATORVASTATIN CALCIUM) 20 Mg Tab, 20 MG PO HS for 30 Days, #30 TAB Prov:CLEMENCIA JERRY MD 11/10/24 Acetaminophen (Acetaminophen) 325 Mg Tab, 650 MG PO Q6HP PRN for 30 Days, #30 TAB Prov:CLEMENCIA JERRY MD 11/10/24 Reported Medications Ezetimibe (Zetia) 10 Mg Tab, 1 TAB PO DAILY, #30 TAB 5 Refills 11/09/24 Lisinopril (Lisinopril) 20 Mg Tab, 10 MG PO DAILY, TAB 11/09/24 Information Source: Patient Mode of Arrival: Ambulatory Severity: Moderate Inability to void: None Timing: Hours Duration: Since onset Has not urinated for: Minutes Prehospital treatment: None Onset: Spontaneous Symptoms: Dysuria, Frequency History of: UTI associated signs and symptoms: Dysuria, Frequency Past Medical History PAST MEDICAL HISTORY: High Lipids, HTN Surgical History: Cholecystectomy 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 Family History Family History: Unknown Social History Smoker: Non-Smoker Alcohol: Denies ETOH Use Drugs: Denies Drug Use Lives In: Home Constitutional: denies: chills, diaphoresis, fatigue, fever, malaise, sweats, weakness, others EENTM: denies: blurred vision, double vision, ear bleeding, ear discharge, ear drainage, ear pain, ear ringing, eye pain, eye redness, hearing loss, mouth pain, mouth swelling, nasal discharge, nose bleeding, nose congestion, nose pain, photophobia, tearing, throat pain, throat swelling, voice changes, others Respiratory: denies: cough, hemoptysis, orthopnea, SOB at rest, shortness of breath, SOB with excertion, stridor, wheezing, others Cardiovascular: denies: chest pain, dizzy spells, diaphoresis, Dyspnea on exertion, edema, irregular heart beat, left arm pain, lightheadedness, palpitations, PND, syncope, others Gastrointestinal: reports: diarrhea; denies: abdomen distended, abdominal pain, blood streaked bowels, constipated, dysphagia, difficulty swallowing, hematemesis, melena, nausea, poor appetite, poor fluid intake, rectal bleeding, rectal pain, vomiting, others Genitourinary: reports: burning, dysuria, frequency; denies: abnormal vagina bleeding, dyspareunia, flank pain, hematuria, incontinence, pain, , vagina discharge, urgency, others Neurological: denies: dizziness, fainting, headache, left sided numbness, left sided weakness, numbness, paresthesia, pre-existing deficit, right sided numbness, right sided weakness, seizure, speech problems, tingling, tremors, weakness, others Musculoskeletal: denies: back pain, gout, joint pain, joint swelling, muscle pain, muscle stiffness, neck pain, others Integumetry: denies: bruises, change in color, change in hair/nails, dryness, laceration, lesions, lumps, rash, wounds, others Allergic/Immunocompromised: denies: Difficulty Healing, Frequent Infections, Hives, Itching, others Hematologic/Lymphatic: denies: anemia, blood clots, easy bleeding, easy bruising, swollen glands, others Endocrine: denies: excessive hunger, excessive sweating, excessive thirst, excessive urination, flushing, intolerance to cold, intolerance to heat, unexplained weight gain, unexplained weight loss, others Psychiatric: denies: anxiety, bipolar disorder, depression, hopeless, panic disorder, schizophrenia, sleepless, suicidal, others All Other Systems: Reviewed and Negative Physical Exam General Appearance: No Apparent Distress, Normal HEENT: NOT DONE Neck: NOT DONE Respiratory: Chest Non-Tender, Lungs Clear, No Accessory Muscle Use, No Respiratory Distress, Normal Breath Sounds Cardiovascular: No Edema, No JVD, No Murmur, No Gallop, Normal Peripheral Pulses, Regular Rate/Rhythm Breast Exam: Deferred Gastrointestinal: No Organomegaly, Non Tender, No Pulsatile Mass, Normal Bowel Sounds, Soft Genitalia: Deferred Pelvic: Deferred Rectal: Deferred Extremities: Normal capillary refill, Normal inspection, Normal range of motion, No pedal edema, Other (PATIENT HAS ORTHOPEDIC BOOT ON RIGHT FOOT) Neurologic: Alert, ambulatory care coordinator II-XII nml as Tested, No Motor Deficits, Normal Affect, Normal Mood, No Sensory Deficits Cerebellar Function: Normal Reflexes: Normal Skin: Dry, Normal Color, Warm Lymphatic: No Adenopathy Was a procedure done? Was a procedure done?: No Differential Diagnosis Kidney stone (Female): N/A Kidney stone (Male): N/A Penile/Scrotal: N/A Urinary Problem (Male): N/A Urinary Problem (Female): Pyelonephritis, Urinary retention, Urolithiasis, UTI X-Ray, Labs, Meds, VS Vital Signs Date Time Temp Pulse Resp B/P (MAP) Pulse Ox O2 Delivery O2 Flow Rate FiO2 12/05/24 07:33 97.9 95 16 125/72 (89) 97 Lab Test 12/05/24 07:46 12/05/24 07:23 Range/Units White Blood Count 6.6 4.4-10.8 10^3/uL Red Blood Count 4.20 4.0-5.20 10^6/uL Hemoglobin 13.8 12.2-16.2 g/dL Hematocrit 39.8 36.0-46.0 % Mean Corpuscular Volume 94.8 80.0-100.0 fL Mean Corpuscular Hemoglobin 32.8 H 28.0-32.0 pg Mean Corpuscular Hemoglobin Concent 34.6 32.0-36.0 g/dL Red Cell Distribution Width 12.9 11.8-14.3 % Platelet Count 358 140-450 10^3/uL Mean Platelet Volume 7.5 6.9-10.8 fL Neutrophils (%) (Auto) 57.1 37.0-80.0 % Lymphocytes (%) (Auto) 31.5 10.0-50.0 % Monocytes (%) (Auto) 8.6 0.0-12.0 % Eosinophils (%) (Auto) 2.2 0.0-7.0 % Basophils (%) (Auto) 0.6 0.0-2.0 % Neutrophils # (Auto) 3.8 1.6-8.6 10 ^3/uL Lymphocytes # (Auto) 2.1 0.4-5.4 10 ^3/uL Monocytes # (Auto) 0.6 0-1.3 10 ^3/uL Eosinophils # (Auto) 0.1 0-0.8 10 ^3/uL Basophils # (Auto) 0 0-0.2 10 ^3/uL Nucleated Red Blood Cells 0.0 % Sodium Level 136 136-145 mmol/L Potassium Level 3.4 L 3.5-5.1 mmol/L Chloride Level 102 98-107 mmol/L Carbon Dioxide Level 27 20-31 mmol/L Anion Gap 7 5-15 Blood Urea Nitrogen 7 L 9-23 mg/dL Creatinine 0.69 0.550-1.02 mg/dL Glomerular Filtration Rate Calc 93 >90 mL/min BUN/Creatinine Ratio 10.1 10.0-20.0 Serum Glucose 111 H 74-106 mg/dL Calcium Level 10.1 8.7-10.4 mg/dL Urine Color Light-yellow Yellow Urine Clarity Cloudy H Clear Urine pH 5.5 5.0-9.0 Urine Specific [place] 1.005 1.001-1.035 Urine Protein Negative Negative Urine Ketones Negative Negative Urine Blood Trace H Negative /uL Urine Nitrite Negative Negative Urine Bilirubin Negative Negative Urine Urobilinogen Normal Negative mg/dL Urine Leukocyte Esterase 2+ Negative /uL Urine RBC None seen 0 - 4 /hpf Urine Microscopic WBC 31 H 0-5 /HPF Urine Squamous Epithelial Cells Few <5 /hpf Urine Bacteria Few H None Seen /hpf Urine Glucose Normal Normal mg/dL Time of 1ST Reevaluation: 07:54 Reevaluation 1ST: Unchanged Patient Education/Counseling: Diagnosis, Treatment, Prognosis Family Education/Counseling: No Family Present Departure 1 Departure Time of Disposition: 08:25 (Patient's workup is concerning for acute cystitis uncomplicated. We will discharge patient home with outpatient follow up) Impression: Primary Impression: Acute cystitis Qualified Codes: N30.00 - Acute cystitis without hematuria Disposition: HOME / SELF CARE / HOMELESS Condition: Stable Additional Instructions: You have a urinary tract infection. You were prescribed antibiotics. Please take as directed. You can take Tylenol Motrin as needed for pain. It is important that he follow up with the regular doctor within 1 week to ensure you are doing better. If your symptoms worsen or you have any other concerns then please return to the emergency room. e-Prescriptions Cefdinir (Cefdinir) 300 Mg Cap 1 CAP PO BID for 5 Days, #14 CAP Prov: KOURTNEY PEDERSEN MD 12/05/24 Discharged With: Self Critical Care Note Critical Care Time?: No Stability Stability form required: No I personally scribed for KOURTNEY PEDERSEN MD ([email or web address]) on 12/05/24 at 07:30. Electronically submitted by Yann Vera ([email or web address]). KOURTNEY PEDERSEN MD Dec 05, 2024 07:30
[2024-12-05 07:57] LABS: Urine Bacteria FEW /hpf (None Seen); Urine Blood TRACE /uL (Negative); Urine Protein, UAD Negative (Negative); Urine Specific Gravity 1.005 (1.001-1.035); Urine Squamous Epithelial Cell FEW /hpf (<5); Urine Urobilinogen Normal (Negative); Urine WBC 31 /HPF (0-5); Urine pH 5.5 (5.0-9.0)
[2024-12-05 07:59] LABS: Urine Clarity Cloudy (Clear); Urine Color Light-Yellow (Yellow)
[2024-12-05 08:01] LABS: Basophils # (auto) 0 10 ^3/uL (0-0.2); Basophils % (auto) 0.6 % (0.0-2.0); Eosinophils # (auto) 0.1 10 ^3/uL (0-0.8); Eosinophils % (auto) 2.2 % (0.0-7.0); Hematocrit 39.8 % (36.0-46.0); Hemoglobin 13.8 g/dL (12.2-16.2); Lymphocytes # (auto) 2.1 10 ^3/uL (0.4-5.4); Lymphocytes % (auto) 31.5 % (10.0-50.0); Mean Corpuscular Hemoglobin 32.8 pg (28.0-32.0); Mean Corpuscular Hgb Conc. 34.6 g/dL (32.0-36.0); Mean Corpuscular Volume 94.8 fL (80.0-100.0); Monocytes # (auto) 0.6 10 ^3/uL (0-1.3); Monocytes % (auto) 8.6 % (0.0-12.0); Neutrophils # (auto) 3.8 10 ^3/uL (1.6-8.6); Neutrophils % (auto) 57.1 % (37.0-80.0); Platelet Count (auto) 358 10^3/uL (140-450); Red Cell Distribution Width 12.9 % (11.8-14.3); White Blood Cell 6.6 10^3/uL (4.4-10.8)
[2024-12-05 08:11] LABS: Chloride 102 mmol/L (98-107); Sodium 136 mmol/L (136-145)
[2024-12-05 08:12] LABS: Anion Gap 7 (5-15); Calcium 10.1 mg/dL (8.7-10.4); Carbon Dioxide 27 mmol/L (20-31)
[2024-12-05 08:17] LABS: BUN/Creatinine Ratio 10.1 (10.0-20.0); Potassium 3.4 mmol/L (3.5-5.1)
[2024-12-05 08:19] LABS: Blood Urea Nitrogen 7 mg/dL (9-23); Glucose 111 mg/dL (74-106)
[2024-12-05 08:20] VITALS: BP 136/79; PULSE 97; RESP 17; TEMP 98.6; O2SAT 95
[2024-12-05] MEDS ORDERED: CEFD300C2 PO (08:27)
[2024-12-05] MEDS ORDERED: cefTRIAXone W LIDOCAINE 1 GM IM IM ONE (08:30)
== END 2024-12-05 08:33 | disposition home or self-care (01) ==
LOC: ER 07:02
DX: N30.00 Acute cystitis without hematuria (principal); I10 Essential (primary) hypertension; E78.5 Hyperlipidemia, unspecified; Z90.49 Acquired absence of other specified parts of digestive tract; Z79.82 Long term (current) use of aspirin; Z79.890 Hormone replacement therapy; Z79.899 Other long term (current) drug therapy; Z88.0 Allergy status to penicillin
CPT/HCPCS: 36415; 80048; 81001; 85025

== ENCOUNTER 2024-12-26 03:39 | Inpatient (IN) | payer MEDICARE ==
[~2024-12-26] VITALS: Ht 154.9 cm; Wt 63.1 kg
[~2024-12-26 03:39] MED LIST changes: +CEFD300C2 PO; +CHOL20002 PO; +LISI-285 PO
[2024-12-26 04:16] LABS: Urine Bacteria None Seen /hpf (None Seen)
--- NOTE | 2024-12-26 04:18 | ED.PDOC ---
General Chief Complaint: Urinary Comments more than a week of dysuria, urgency, frequency. she had cefdinir for 3 days, without improvement, so had 7 days of macrobid, and felt better, but today feels increased symptoms again, no flank pain, no fever Time Seen by MD: 04:01 Primary Care Provider: BRETT Reviewed notes: Nurses Notes, Medications, Allergies Allergies: Coded Allergies: Penicillins (Verified Allergy, Severe, 04/19/23) Home Meds Active Scripts Cefdinir (Cefdinir) 300 Mg Cap, 1 CAP PO BID for 5 Days, #14 CAP Prov:KOURTNEY PEDERSEN MD 12/05/24 Hydrocodone-Acetaminophen (Hydrocodone/Acetaminophen 5-325 mg) 1 Tab Tab, 1 TAB PO TIDP PRN for 3 Days, #9 TAB Prov:SHIRA NETTLES MD 11/10/24 Aspirin (Aspir-81) 81 Mg Tab, 1 TAB PO DAILY for 14 Days, #14 TAB 0 Refills Prov:CLEMENCIA JERRY MD 11/10/24 Doxycycline (Monohydrate) (Doxycycline) 100 Mg Cap, 100 MG PO BID for 42 Days, #84 CAP Prov:CLEMENCIA JERRY MD 11/10/24 Hydrocodone-Acetaminophen (Hydrocodone Bitartrate/AC 5-325 mg) 1 Tab Tab, 1 TAB PO Q8HPRN PRN for 3 Days, #9 TAB Prov:CLEMENCIA JERRY MD 11/10/24 Levothyroxine Sodium (Levothyroxine Sodium) 25 Mcg Tab, 25 MCG PO QAM@0600 for 30 Days, #30 TAB Prov:CLEMENCIA JERRY MD 11/10/24 Atorvastatin Calcium (ATORVASTATIN CALCIUM) 20 Mg Tab, 20 MG PO HS for 30 Days, #30 TAB Prov:CLEMENCIA JERRY MD 11/10/24 Acetaminophen (Acetaminophen) 325 Mg Tab, 650 MG PO Q6HP PRN for 30 Days, #30 TAB Prov:CLEMENCIA JERRY MD 11/10/24 Reported Medications Ezetimibe (Zetia) 10 Mg Tab, 1 TAB PO DAILY, #30 TAB 5 Refills 11/09/24 Lisinopril (Lisinopril) 20 Mg Tab, 10 MG PO DAILY, TAB 11/09/24 Information Source: Patient, [facility] Medical Record, Past Medical Record, PMD Records Mode of Arrival: Ambulatory Severity: Mild Timing: Days Duration: Since onset Onset: Spontaneous Symptoms: Dysuria, Frequency, Urgency History of: UTI associated signs and symptoms: Dysuria, Frequency, Urgency Past Medical History PAST MEDICAL HISTORY: CAD, High Lipids, HTN, UTI'S Surgical History: Cholecystectomy 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 Family History Family History: Unknown Social History Smoker: Non-Smoker Alcohol: Denies ETOH Use Drugs: Denies Drug Use Lives In: Home Constitutional: denies: chills, diaphoresis, fatigue, fever, malaise, sweats, weakness, others EENTM: denies: blurred vision, double vision, ear bleeding, ear discharge, ear drainage, ear pain, ear ringing, eye pain, eye redness, hearing loss, mouth pain, mouth swelling, nasal discharge, nose bleeding, nose congestion, nose pain, photophobia, tearing, throat pain, throat swelling, voice changes, others Respiratory: denies: cough, hemoptysis, orthopnea, SOB at rest, shortness of breath, SOB with excertion, stridor, wheezing, others Cardiovascular: denies: chest pain, dizzy spells, diaphoresis, Dyspnea on exertion, edema, irregular heart beat, left arm pain, lightheadedness, palpitations, PND, syncope, others Gastrointestinal: denies: abdomen distended, abdominal pain, blood streaked bowels, constipated, diarrhea, dysphagia, difficulty swallowing, hematemesis, melena, nausea, poor appetite, poor fluid intake, rectal bleeding, rectal pain, vomiting, others Genitourinary: reports: dysuria, frequency, urgency; denies: abnormal vagina bleeding, burning, dyspareunia, flank pain, hematuria, incontinence, pain, , vagina discharge, others Neurological: denies: dizziness, fainting, headache, left sided numbness, left sided weakness, numbness, paresthesia, pre-existing deficit, right sided numbne ss, right sided weakness, seizure, speech problems, tingling, tremors, weakness, others Musculoskeletal: denies: back pain, gout, joint pain, joint swelling, muscle pain, muscle stiffness, neck pain, others Integumetry: denies: bruises, change in color, change in hair/nails, dryness, laceration, lesions, lumps, rash, wounds, others Allergic/Immunocompromised: denies: Difficulty Healing, Frequent Infections, Hives, Itching, others Hematologic/Lymphatic: denies: anemia, blood clots, easy bleeding, easy bruising, swollen glands, others Endocrine: denies: excessive hunger, excessive sweating, excessive thirst, excessive urination, flushing, intolerance to cold, intolerance to heat, unexplained weight gain, unexplained weight loss, others Psychiatric: denies: anxiety, bipolar disorder, depression, hopeless, panic disorder, schizophrenia, sleepless, suicidal, others All Other Systems: Reviewed and Negative Physical Exam General Appearance: No Apparent Distress, Normal HEENT: Normal ENT Inspection, Pharynx Normal, TMs Normal Neck: Full Range of Motion, Non-Tender, Normal, Normal Inspection Respiratory: Chest Non-Tender, Lungs Clear, No Accessory Muscle Use, No Respiratory Distress, Normal Breath Sounds Cardiovascular: No Edema, No JVD, No Murmur, No Gallop, Normal Peripheral Pulses, Regular Rate/Rhythm Breast Exam: Deferred Gastrointestinal: No Organomegaly, Non Tender, No Pulsatile Mass, Normal Bowel Sounds, Soft, Tenderness (MILD BILATERAL FLANK) Genitalia: Deferred Pelvic: Deferred Rectal: Deferred Extremities: No calf tenderness, Normal capillary refill, Normal inspection, Normal range of motion, Non-tender, No pedal edema Musculoskeletal : Apperance: Normal Neurologic: Alert, manager science II-XII nml as Tested, No Motor Deficits, Normal Affect, Normal Mood, No Sensory Deficits Cerebellar Function: Normal Reflexes: Normal Skin: Dry, Normal Color, Warm Lymphatic: No Adenopathy Was a procedure done? Was a procedure done?: No Differential Diagnosis Kidney stone (Female): Musculoskeletal pain, Pyelonephritis, Renal failure, Urolithiasis Kidney stone (Male): Renal failure, Renal infarction, Urinary tract infection Urinary Problem (Male): Urethritis, Urolithiasis, UTI Urinary Problem (Female): Pyelonephritis X-Ray, Labs, Meds, VS Vital Signs Date Time Temp Pulse Resp B/P (MAP) Pulse Ox O2 Delivery O2 Flow Rate FiO2 12/26/24 03:55 99.2 93 18 116/71 (86) 99 99.2 Lab Test 12/26/24 04:18 12/26/24 03:45 Range/Units White Blood Count 9.2 4.4-10.8 10^3/uL Red Blood Count 4.52 4.0-5.20 10^6/uL Hemoglobin 14.6 12.2-16.2 g/dL Hematocrit 43.1 36.0-46.0 % Mean Corpuscular Volume 95.2 80.0-100.0 fL Mean Corpuscular Hemoglobin 32.2 H 28.0-32.0 pg Mean Corpuscular Hemoglobin Concent 33.8 32.0-36.0 g/dL Red Cell Distribution Width 13.1 11.8-14.3 % Platelet Count 431 140-450 10^3/uL Mean Platelet Volume 7.9 6.9-10.8 fL Neutrophils (%) (Auto) 60.6 37.0-80.0 % Lymphocytes (%) (Auto) 28.8 10.0-50.0 % Monocytes (%) (Auto) 7.6 0.0-12.0 % Eosinophils (%) (Auto) 1.9 0.0-7.0 % Basophils (%) (Auto) 1.1 0.0-2.0 % Neutrophils # (Auto) 5.5 1.6-8.6 10 ^3/uL Lymphocytes # (Auto) 2.6 0.4-5.4 10 ^3/uL Monocytes # (Auto) 0.7 0-1.3 10 ^3/uL Eosinophils # (Auto) 0.2 0-0.8 10 ^3/uL Basophils # (Auto) 0.1 0-0.2 10 ^3/uL Nucleated Red Blood Cells 0.2 % Sodium Level 137 136-145 mmol/L Potassium Level 3.6 3.5-5.1 mmol/L Chloride Level 101 98-107 mmol/L Carbon Dioxide Level 28 20-31 mmol/L Anion Gap 8 5-15 Blood Urea Nitrogen 12 9-23 mg/dL Creatinine 0.74 0.550-1.02 mg/dL Glomerular Filtration Rate Calc 86 >90 mL/min BUN/Creatinine Ratio 16.2 10.0-20.0 Serum Glucose 110 H 74-106 mg/dL Calcium Level 10.0 8.7-10.4 mg/dL Urine Color Light-yellow Yellow Urine Clarity Clear Clear Urine pH 5.5 5.0-9.0 Urine Specific [place] 1.015 1.001-1.035 Urine Protein Negative Negative Urine Ketones Negative Negative Urine Blood Negative Negative /uL Urine Nitrite Negative Negative Urine Bilirubin Negative Negative Urine Urobilinogen Normal Negative mg/dL Urine Leukocyte Esterase 2+ Negative /uL Urine RBC <1 0 - 4 /hpf Urine Microscopic WBC 20 H 0-5 /HPF Urine Squamous Epithelial Cells Few <5 /hpf Urine Bacteria None seen None Seen /hpf Urine Mucus Few None Seen Urine Glucose Normal Normal mg/dL Time of 1ST Reevaluation: 05:34 Reevaluation 1ST: Unchanged Patient Education/Counseling: Diagnosis, Treatment, Prognosis, Need For Follow Up Family Education/Counseling: No Family Present Comments pt is elderly with outpatient failure of 2 antibiotics. i have ordered urine culture. her ct cannot exclude pyelonephritis. she is afebrile, with no leukocytosis, but does have mild flank discomfort. i will have her admitted due for treatment of resistant uti, cannot exclude early pyelonephritis Departure 1 Departure Time of Disposition: 05:36 Impression: Primary Impression: UTI (urinary tract infection) Additional Impression: Pyelonephritis Disposition: ADMITTED INPATIENT Admit to: Med Surg Condition: Stable Discharged With: Self Critical Care Note Critical Care Time?: Yes (45 min-critical care time only) Critical care comment: Due to concerns for patients condition deteriorating, the care required my highest level of attention and readiness to intervene. I assessed the patient, reviewed the medical records, ordered the appropriate tests and treatments, then reassessed for results and responsiveness. I communicated with medical personnel and consultants and formulated a plan of care. Total critical care time excludes any procedures Stability Stability form required: REVA Acuna MD Dec 26, 2024 04:18
[2024-12-26 04:32] LABS: Urine Blood Negative /uL (Negative); Urine Clarity Clear (Clear); Urine Color Light-Yellow (Yellow); Urine Mucus FEW (None Seen); Urine Protein, UAD Negative (Negative); Urine Specific Gravity 1.015 (1.001-1.035); Urine Squamous Epithelial Cell FEW /hpf (<5); Urine Urobilinogen Normal (Negative); Urine WBC 20 /HPF (0-5); Urine pH 5.5 (5.0-9.0)
[2024-12-26 04:39] LABS: Basophils # (auto) 0.1 10 ^3/uL (0-0.2); Basophils % (auto) 1.1 % (0.0-2.0); Eosinophils # (auto) 0.2 10 ^3/uL (0-0.8); Eosinophils % (auto) 1.9 % (0.0-7.0); Hematocrit 43.1 % (36.0-46.0); Hemoglobin 14.6 g/dL (12.2-16.2); Lymphocytes # (auto) 2.6 10 ^3/uL (0.4-5.4); Lymphocytes % (auto) 28.8 % (10.0-50.0); Mean Corpuscular Hemoglobin 32.2 pg (28.0-32.0); Mean Corpuscular Hgb Conc. 33.8 g/dL (32.0-36.0); Mean Corpuscular Volume 95.2 fL (80.0-100.0); Monocytes # (auto) 0.7 10 ^3/uL (0-1.3); Monocytes % (auto) 7.6 % (0.0-12.0); Neutrophils # (auto) 5.5 10 ^3/uL (1.6-8.6); Neutrophils % (auto) 60.6 % (37.0-80.0); Nucleated Red Blood Cells % 0.2 %; Platelet Count (auto) 431 10^3/uL (140-450); Red Blood Cells 4.52 10^6/uL (4.0-5.20); Red Cell Distribution Width 13.1 % (11.8-14.3); White Blood Cell 9.2 10^3/uL (4.4-10.8)
[2024-12-26 04:44] LABS: Anion Gap 8 (5-15); Carbon Dioxide 28 mmol/L (20-31); Chloride 101 mmol/L (98-107); Potassium 3.6 mmol/L (3.5-5.1); Sodium 137 mmol/L (136-145)
[2024-12-26 04:50] LABS: BUN/Creatinine Ratio 16.2 (10.0-20.0); Blood Urea Nitrogen 12 mg/dL (9-23); Glucose 110 mg/dL (74-106)
--- NOTE | 2024-12-26 05:03 | [facility] ---
EXAM: CT Abdomen and Pelvis Without Intravenous Contrast CLINICAL INDICATION: r/o pyelonephritis TECHNIQUE: Axial computed tomography images of the abdomen and pelvis without intravenous contrast. This CT exam was performed using one or more of the following dose reduction techniques: automated exposure control, adjustment of the mA and/or kV according to patient size, and/or use of iterative r econstruction technique. CONTRAST: RADIATION DOSE: CTDIvol = 7.23 mGy, DLP = 345.34 mGy-cm COMPARISON: None FINDINGS: LUNG BASES: Unremarkable. No mass. No consolidation. ABDOMEN: LIVER: Unremarkable. GALLBLADDER AND BILE DUCTS: Gallbladder is surgically absent. No ductal dilation. PANCREAS: Unremarkable. No ductal dilation. SPLEEN: Unremarkable. No splenomegaly. ADRENALS: Unremarkable. No mass. KIDNEYS AND URETERS: Suboptimal exam for evaluation of pyelonephritis without IV contrast. No ston es within either kidney. No hydronephrosis. STOMACH AND BOWEL: Colonic diverticulosis without acute diverticulitis. No obstruction. PELVIS: APPENDIX: No findings to suggest acute appendicitis. BLADDER: Unremarkable. No stones. REPRODUCTIVE: Unremarkable as visualized. ABDOMEN and PELVIS: INTRAPERITONEAL SPACE: Unremarkable. No free air. No significant fluid collection. BONES/JOINTS: No acute fracture. No dislocation. SOFT TISSUES: Unremarkable. VASCULATURE: Scattered calcified atherosclerotic disease of aorta. No abdominal aortic aneurysm. LYMPH NODES: Unremarkable. No enlarged lymph nodes. OTHER FINDINGS: . . IMPRESSION: 1. Suboptimal exam for evaluation of pyelonephritis without IV contrast. 2. No obstructive uropathy. 3. Colonic diverticulosis without acute diverticulitis.
[2024-12-26] MEDS: cefTRIAXone 1GM/50ML D5W 50 ML IV ONE ×2 (07:39→12:22)
[2024-12-26] MEDS: SULFAMETH-TRIMETH 80/16MG-ML 10 ML in D5W 5% 250 ML IV ONE (08:47)
[2024-12-26 08:58] VITALS: PULSE 93; RESP 17; O2SAT 96
[2024-12-26] MEDS ORDERED: ONDANSETRON HCL 4 MG/2 ML VIAL IV PRN (10:45)
[2024-12-26] MEDS ORDERED: DOCUSATE SOD 100 MG CAP PO PRN (10:45)
[2024-12-26] MEDS ORDERED: ACETAMINOPHEN 325 MG TAB PO PRN (10:45)
--- NOTE | 2024-12-26 10:52 | DVHHP2 ---
History of Present Illness Reason for Visit: Dysuria History of Present Illness Asuncion Bahtia is a 69-year-old female with past medical history of hypertension, hyperlipidemia, and hypothyroidism who came in for urinary burning. Patient states her symptoms began almost 2 weeks ago. She was seen in the ER, diagnosed with UTI, given a prescription for antibiotics and sent home. She states her symptoms were not improving so she called her primary care provider and was given a prescription for a different antibiotic. She took it for about 7 days. She states it seemed to help at first, but the symptoms are still there. She states the burning during urination is what prompted her to come in. She states she is still experiencing burning, frequency, and urgency with urination. Patient was admitted in October S/P horse back riding accident that required surgery to her right ankle. Cardiovascular: HTN, hyperipidemia Endocrine: Hyperparathyroidism Past Surgical History: Other (right ankle), Tonsillectomy Smoke: No ALCOHOL: none Drugs: None Lives: Alone Domestic Violence: Neg Review of Systems Constitutional: No: Fever, Chills, Sweats, Weakness, Malaise, Other Eyes: No: Pain, Vision change, Conjunctivae inflammation, Eyelid inflammation, Other, Redness ENT: No: Ear pain, Ear discharge, Nose pain, Nose discharge, Nose congestion, Mouth pain, Mouth swelling, Throat pain, Throat swelling, Other Respiratory: No: Cough, Dry, Shortness of breath, SOB with excertion, Wheezing, Hemoptysis, Pleuritic Pain, Sputum, Wheezing, Other Cardiovascular: No: Chest Pain, Palpitations, Orthopnea, Paroxysmal Noc. Dyspnea, Edema, Lt Headedness, Other Gastrointestinal: No: Nausea, Vomiting, Abdominal Pain, Diarrhea, Constipation, Melena, Hematochezia, Other Genitourinary: Dysuria, Frequency; No Incontinence, No Hematuria, No Retention; Other (urgency) Musculoskeletal: No: other, neck pain, shoulder pain, arm pain, back pain, hand pain, leg pain, foot pain Skin: No: Rash, Lesions, Jaundice, Bruising, Other Neurological: No: Weakness, Numbness, Incoordination, Change in speech, Confusion, Seizures, Other Allergies: Coded Allergies: Penicillins (Verified Allergy, Severe, 04/19/23) Medications Current Medications Medications Dose Ordered Sig/Finn Route Start Time Stop Time Status Last Admin Dose Admin Acetaminophen/ Hydrocodone Bitart 1 tab Q4HP PRN PO 12/26/24 10:45 UNV Ondansetron HCl 4 mg Q4HP PRN IV 12/26/24 10:45 UNV Docusate Sodium 100 mg BIDPRN PRN PO 12/26/24 10:45 UNV Acetaminophen 650 mg Q6HP PRN PO 12/26/24 10:45 UNV Ceftriaxone Sodium 50 ml @ 100 mls/hr DAILY@09 IV 12/27/24 09:00 UNV Exam Vital Signs Vital Signs Date Time Temp Pulse Resp B/P (MAP) Pulse Ox O2 Delivery O2 Flow Rate FiO2 12/26/24 08:58 98.6 93 17 119/80 (93) 96 98.6 12/26/24 08:58 Room Air* 0 21 General Appearance: Alert, Oriented X3, Cooperative, mild distress HEENT: Atraumatic, PERRLA Respiratory: Clear to auscultation, Normal air movement Cardiovascular: Regular rate, Normal S1, Normal S2 Abdominal: Normal bowel sounds Extremities: No clubbing, No cyanosis, Normal pulses, Other (right ankle/foot swelling and tenderness) Skin: No rashes, No breakdown, No significant lesion Neuro: Normal speech, Other (S/P right ankle surgery October 2024) Psych/Mental Status: Mental status NL, Mood NL Labs/Xrays Labs Test 12/26/24 04:18 12/26/24 03:45 Range/Units White Blood Count 9.2 4.4-10.8 10^3/uL Red Blood Count 4.52 4.0-5.20 10^6/uL Hemoglobin 14.6 12.2-16.2 g/dL Hematocrit 43.1 36.0-46.0 % Mean Corpuscular Volume 95.2 80.0-100.0 fL Mean Corpuscular Hemoglobin 32.2 H 28.0-32.0 pg Mean Corpuscular Hemoglobin Concent 33.8 32.0-36.0 g/dL Red Cell Distribution Width 13.1 11.8-14.3 % Platelet Count 431 140-450 10^3/uL Mean Platelet Volume 7.9 6.9-10.8 fL Neutrophils (%) (Auto) 60.6 37.0-80.0 % Lymphocytes (%) (Auto) 28.8 10.0-50.0 % Monocytes (%) (Auto) 7.6 0.0-12.0 % Eosinophils (%) (Auto) 1.9 0.0-7.0 % Basophils (%) (Auto) 1.1 0.0-2.0 % Neutrophils # (Auto) 5.5 1.6-8.6 10 ^3/uL Lymphocytes # (Auto) 2.6 0.4-5.4 10 ^3/uL Monocytes # (Auto) 0.7 0-1.3 10 ^3/uL Eosinophils # (Auto) 0.2 0-0.8 10 ^3/uL Basophils # (Auto) 0.1 0-0.2 10 ^3/uL Nucleated Red Blood Cells 0.2 % Sodium Level 137 136-145 mmol/L Potassium Level 3.6 3.5-5.1 mmol/L Chloride Level 101 98-107 mmol/L Carbon Dioxide Level 28 20-31 mmol/L Anion Gap 8 5-15 Blood Urea Nitrogen 12 9-23 mg/dL Creatinine 0.74 0.550-1.02 mg/dL Glomerular Filtration Rate Calc 86 >90 mL/min BUN/Creatinine Ratio 16.2 10.0-20.0 Serum Glucose 110 H 74-106 mg/dL Calcium Level 10.0 8.7-10.4 mg/dL Urine Color Light-yellow Yellow Urine Clarity Clear Clear Urine pH 5.5 5.0-9.0 Urine Specific [place] 1.015 1.001-1.035 Urine Protein Negative Negative Urine Ketones Negative Negative Urine Blood Negative Negative /uL Urine Nitrite Negative Negative Urine Bilirubin Negative Negative Urine Urobilinogen Normal Negative mg/dL Urine Leukocyte Esterase 2+ Negative /uL Urine RBC <1 0 - 4 /hpf Urine Microscopic WBC 20 H 0-5 /HPF Urine Squamous Epithelial Cells Few <5 /hpf Urine Bacteria None seen None Seen /hpf Urine Mucus Few None Seen Urine Glucose Normal Normal mg/dL EXAM: CT Abdomen and Pelvis Without Intravenous Contrast FINDINGS: LUNG BASES: Unremarkable. No mass. No consolidation. ABDOMEN: LIVER: Unremarkable. GALLBLADDER AND BILE DUCTS: Gallbladder is surgically absent. No ductal dilation. PANCREAS: Unremarkable. No ductal dilation. SPLEEN: Unremarkable. No splenomegaly. ADRENALS: Unremarkable. No mass. KIDNEYS AND URETERS: Suboptimal exam for evaluation of pyelonephritis without IV contrast. No stones within either kidney. No hydronephrosis. STOMACH AND BOWEL: Colonic diverticulosis without acute diverticulitis. No obstruction. PELVIS: APPENDIX: No findings to suggest acute appendicitis. BLADDER: Unremarkable. No stones. REPRODUCTIVE: Unremarkable as visualized. ABDOMEN and PELVIS: INTRAPERITONEAL SPACE: Unremarkable. No free air. No significant fluid collection. BONES/JOINTS: No acute fracture. No dislocation. SOFT TISSUES: Unremarkable. VASCULATURE: Scattered calcified atherosclerotic disease of aorta. No abdominal aortic aneurysm. LYMPH NODES: Unremarkable. No enlarged lymph nodes. OTHER FINDINGS: . . IMPRESSION: 1. Suboptimal exam for evaluation of pyelonephritis without IV contrast. 2. No obstructive uropathy. 3. Colonic diverticulosis without acute diverticulitis. Assessment/Plan Assessment/Plan Assessment: Complicated UTI, Hypertension, Hyperlipidemia, Plan: Admit to Med-Surg, IV antibiotics, Urine culture, Home medications reconciled, Plan discussed with: Patient My Orders Orders - JESÚS CRUMP Procedure Category Date Status Time Admit ADMIT 12/26/24 Transmitted 10:35 Code Status CODE 12/26/24 Transmitted 10:35 2 Gm Sodium Diet DIET 12/26/24 Transmitted Lunch Hydrocodone-Acet PHA 12/26/24 Transmitted 5/325mg Tab ([place] 10:45 Ondansetron Hcl PHA 12/26/24 Transmitted (Zofran) 10:45 Docusate Sodium PHA 12/26/24 Transmitted Capsule ([place] 10:45 Complete Blood Count LAB 12/27/24 Verified 04:00 Comprehensive LAB 12/27/24 Verified Metabolic Panel 04:00 Condition: Serious ADALI 12/26/24 Transmitted 10:35 Acetaminophen Tablet PHA 12/26/24 Transmitted (Tylenol Tablet) 10:45 Ceftriaxone Ivpb PHA 12/27/24 Transmitted Rocephin 09:00 Ceftriaxone Ivpb PHA 12/26/24 Transmitted Rocephin 10:45 Bactrim Iv Septra PHA 12/26/24 Transmitted Sulfam/Trim 14:00 Date of Service: Dec 26, 2024 Billing Provider: JESÚS CRUMP Common Visit Codes: [id number] INP/OBS CARE (MOD) JESÚS CRUMP Dec 26, 2024 10:52
[2024-12-26 11:34] VITALS: BP 109/75; PULSE 98; RESP 16; TEMP 98.3; O2SAT 95; O2SAT 98
[2024-12-26] MEDS ORDERED: SULFAMETH-TRIMETH 80/16MG-ML 10 ML in D5W 5% 250 ML IV SCH (14:00)
[2024-12-26 17:50] VITALS: BP 117/72; PULSE 84; RESP 18; TEMP 98.8; O2SAT 100
[2024-12-26 18:00] VITALS: BP 107/66; PULSE 83; RESP 18; TEMP 98.4; O2SAT 100
[2024-12-26 20:00] VITALS: PULSE 79; RESP 17; O2SAT 98
[2024-12-26 21:00] VITALS: BP 111/73; PULSE 79; RESP 17; TEMP 98.2; O2SAT 99
[2024-12-27] VITALS (8 sets, daily range): BP systolic 103–127; BP diastolic 61–88; PULSE 68–76; RESP 15–18; TEMP 97.6–98.2; O2SAT 94–99
[2024-12-27] MEDS: HYDROcodone-ACET 5/325MG TAB PO PRN (00:32)
[2024-12-27] MEDS: LEVOTHYROXINE SODIUM 25 MCG TAB PO SCH (06:00)
[2024-12-27 06:04] LABS: Basophils # (auto) 0.1 10 ^3/uL (0-0.2); Basophils % (auto) 1.3 % (0.0-2.0); Eosinophils # (auto) 0.1 10 ^3/uL (0-0.8); Hematocrit 36.6 % (36.0-46.0); Hemoglobin 12.5 g/dL (12.2-16.2); Lymphocytes # (auto) 2.1 10 ^3/uL (0.4-5.4); Lymphocytes % (auto) 41.5 % (10.0-50.0); Mean Corpuscular Hemoglobin 31.9 pg (28.0-32.0); Mean Corpuscular Hgb Conc. 34.1 g/dL (32.0-36.0); Mean Corpuscular Volume 93.5 fL (80.0-100.0); Monocytes # (auto) 0.5 10 ^3/uL (0-1.3); Monocytes % (auto) 10.1 % (0.0-12.0); Neutrophils # (auto) 2.3 10 ^3/uL (1.6-8.6); Neutrophils % (auto) 45.1 % (37.0-80.0); Platelet Count (auto) 354 10^3/uL (140-450); Red Blood Cells 3.91 10^6/uL (4.0-5.20); Red Cell Distribution Width 13.1 % (11.8-14.3); White Blood Cell 5.2 10^3/uL (4.4-10.8)
[2024-12-27 06:26] LABS: Alanine Aminotransferase 15 U/L (7-40); Anion Gap 8 (5-15); Calcium 9.6 mg/dL (8.7-10.4); Carbon Dioxide 27 mmol/L (20-31); Chloride 106 mmol/L (98-107); Potassium 3.6 mmol/L (3.5-5.1); Sodium 141 mmol/L (136-145)
[2024-12-27 06:27] LABS: Alkaline Phosphatase 46 U/L (46-116); Aspartate Aminotransferase 17 U/L (13-40); BUN/Creatinine Ratio 9.7 (10.0-20.0); Glucose 98 mg/dL (74-106)
[2024-12-27 06:28] LABS: Total Protein 5.9 g/dL (5.7-8.2)
[2024-12-27 06:29] LABS: Albumin 3.9 g/dL (3.2-4.8); Bilirubin, Total 0.6 mg/dL (0.2-1.0)
[2024-12-27 06:31] LABS: Blood Urea Nitrogen 7 mg/dL (9-23)
[2024-12-27] MEDS: cefTRIAXone 1GM/50ML D5W 50 ML IV SCH (09:51)
[2024-12-27] MEDS: ASPirin-EC 81 mg tab PO SCH (09:51)
[2024-12-27] MEDS: LISINOPRIL 20 MG TAB PO SCH (09:52)
[2024-12-27] MEDS ORDERED: EZETIMIBE 10 MG TAB PO SCH (10:00)
[2024-12-27] MEDS: POLYETHYLENE GLYCOL 17 GM PWDR PO ONE (12:03)
[2024-12-27] MEDS: PHENAZOPYRIDINE HCL 100 MG TAB PO SCH (12:03)
--- NOTE | 2024-12-27 13:45 | DVHPN2 ---
Subjective Dysuria s/p right ankle fx and ORIF Changes from previous H/P or p: Changes Eyes: No Pain, No Vision change, No Conjunctivae inflammation, No Eyelid inflammation, No Other, No Redness ENT: No Ear pain, No Ear discharge, No Nose pain, No Nose discharge, No Nose congestion, No Mouth pain, No Mouth swelling, No Throat pain, No Throat swelling, No Other Cardiovascular: No Chest Pain, No Palpitations, No Orthopnea, No Paroxysmal Noc. Dyspnea, No Edema, No Lt Headedness, No Other Respiratory: No Cough, No Dry, No Shortness of breath, No SOB with excertion, No Wheezing, No Hemoptysis, No Pleuritic Pain, No Sputum, No Other Gastrointestinal: No Nausea, No Vomiting, No Abdominal Pain, No Diarrhea, No Constipation, No Melena, No Hematochezia, No Other Genitourinary: Dysuria, Frequency; No Incontinence, No Hematuria, No Retention; Other (urgency) Musculoskeletal: No other, No neck pain, No shoulder pain, No arm pain, No back pain, No hand pain, No leg pain, No foot pain Skin: No Rash, No Lesions, No Jaundice, No Bruising, No Other Objective Vitals Vital Signs Date Time Temp Pulse Resp B/P (MAP) Pulse Ox O2 Delivery O2 Flow Rate FiO2 12/27/24 09:52 108/61 12/27/24 08:53 97.9 68 15 98 97.9 12/27/24 08:00 Room Air* 0 21 Intake/Output Intake and Output 12/27/24 07:00 Intake Total 990 ml Balance 990 ml Intake Oral 940 ml IV Total 50 ml # Voids 4 General Appearance: Alert, Oriented X3, Cooperative Lungs: Clear to auscultation, Normal air movement Cardiovascular: Regular rate, Normal S1, Normal S2 Abdomen: Normal bowel sounds, Soft Extremities: No edema Medications Current Medications Medications Dose Ordered Sig/Finn Route Start Time Stop Time Status Last Admin Dose Admin Acetaminophen/ Hydrocodone Bitart 1 tab Q4HP PRN PO 12/26/24 10:45 12/27/24 00:32 1 TAB Ondansetron HCl 4 mg Q4HP PRN IV 12/26/24 10:45 Docusate Sodium 100 mg BIDPRN PRN PO 12/26/24 10:45 Acetaminophen 650 mg Q6HP PRN PO 12/26/24 10:45 Ceftriaxone Sodium 50 ml @ 100 mls/hr DAILY@09 IV 12/27/24 09:00 12/27/24 09:51 100 MLS/HR Aspirin 81 mg DAILY PO 12/27/24 10:00 12/27/24 09:51 81 MG Levothyroxine Sodium 25 mcg QAM@0600 PO 12/27/24 06:00 Lisinopril 10 mg DAILY PO 12/27/24 10:00 Phenazopyridine HCl 100 mg TIDWM PO 12/27/24 12:00 12/27/24 12:03 100 MG Polyethylene Glycol 17 gm DAILYPRN PRN PO 12/28/24 10:00 EZETIMIBE 10 mg HS PO 12/27/24 22:00 Laboratory Results Laboratory Tests 12/27/24 05:08 Chemistry Test 12/27/24 05:08 Albumin 3.9 g/dL (3.2-4.8) Calcium Level 9.6 mg/dL (8.7-10.4) Total Protein 5.9 g/dL (5.7-8.2) LFT Test 12/27/24 05:08 Alanine Aminotransferase (ALT) 15 U/L (7-40) Alkaline Phosphatase 46 U/L (46-116) Aspartate Amino Transferase (AST) 17 U/L (13-40) Total Bilirubin 0.6 mg/dL (0.2-1.0) Urinalysis Test 12/26/24 03:45 Urine Color Light-yellow (Yellow) Urine Clarity Clear (Clear) Urine pH 5.5 (5.0-9.0) Urine Specific [place] 1.015 (1.001-1.035) Urine Protein Negative (Negative) Urine Ketones Negative (Negative) Urine Blood Negative /uL (Negative) Urine Nitrite Negative (Negative) Urine Bilirubin Negative (Negative) Urine Urobilinogen Normal mg/dL (Negative) Urine Leukocyte Esterase 2+ /uL (Negative) Urine RBC <1 /hpf (0 - 4) Urine Microscopic WBC 20 /HPF (0-5) H Urine Squamous Epithelial Cells Few /hpf (<5) Urine Bacteria None seen /hpf (None Seen) Urine Mucus Few (None Seen) Urine Glucose Normal mg/dL (Normal) Microbiology Microbiology Date/Time Source Procedure Growth Status 12/26/24 03:45 Urine - Midstream Clean Catch Urine Culture - Preliminary Resulted Assessment/Plan Assessment/Plan UTI HTN, Mixed hyperipidemia Hyperparathyroidism s/p Right ankle fracture & ORIF 2 months ago PLAN: IV Rocephin Urine C&S Consult podiatry Ful code Advanced directives discussed x 16 minutes Plan discussed with: Patient Date of Service: Dec 27, 2024 Billing Provider: DALIA CHRISTIANSON MD Common Visit Codes: [id number] INP/OBS CARE(HIGH) Secondary Visit Codes: [id number] CARE PLAN 30 MINUTES DALIA CHRISTIANSON MD Dec 27, 2024 13:45
--- NOTE | 2024-12-27 15:08 | DVHINCON2 ---
Date Seen: Dec 27, 2024 Reason for Consultation Right ankle ORIF post op History of Present Illness Asuncion Bhatia is a 69-year-old female with past medical history of hypertension, hyperlipidemia, and hypothyroidism who came in for urinary burning. Patient states her symptoms began almost 2 weeks ago. She was seen in the ER, diagnosed with UTI, given a prescription for antibiotics and sent home. She states her symptoms were not improving so she called her primary care provider and was given a prescription for a different antibiotic. She took it for about 7 days. She states it seemed to help at first, but the symptoms are still there. She states the burning during urination is what prompted her to come in. She states she is still experiencing burning, frequency, and urgency with urination. Patient was admitted in October S/P horse back riding accident that required surgery to her right ankle. Past Medical History See H&P Past Surgical History See H&P Allergies: Coded Allergies: Penicillins (Verified Allergy, Severe, 04/19/23) Home Meds Active Scripts Aspirin (Aspir-81) 81 Mg Tab, 1 TAB PO DAILY for 14 Days, #14 TAB 0 Refills Prov:CLEMENCIA JERRY MD 11/10/24 Levothyroxine Sodium (Levothyroxine Sodium) 25 Mcg Tab, 25 MCG PO QAM@0600 for 30 Days, #30 TAB Prov:CLEMENCIA JERRY MD 11/10/24 Atorvastatin Calcium (ATORVASTATIN CALCIUM) 20 Mg Tab, 20 MG PO HS for 30 Days, #30 TAB Prov:CLEMENCIA JERRY MD 11/10/24 Acetaminophen (Acetaminophen) 325 Mg Tab, 650 MG PO Q6HP PRN for 30 Days, #30 TAB Prov:CLEMENCIA JERRY MD 11/10/24 Reported Medications Ezetimibe (Zetia) 10 Mg Tab, 1 TAB PO DAILY, #30 TAB 5 Refills 11/09/24 Lisinopril (Lisinopril) 20 Mg Tab, 10 MG PO DAILY, TAB 11/09/24 Discontinued Scripts Cefdinir (Cefdinir) 300 Mg Cap, 1 CAP PO BID for 5 Days, #14 CAP Prov:KOURTNEY PEDERSEN MD 12/05/24 Hydrocodone-Acetaminophen (Hydrocodone/Acetaminophen 5-325 mg) 1 Tab Tab, 1 TAB PO TIDP PRN for 3 Days, #9 TAB Prov:SHIRA NETTLES MD 11/10/24 Doxycycline (Monohydrate) (Doxycycline) 100 Mg Cap, 100 MG PO BID for 42 Days, #84 CAP Prov:CLEMENCIA JERRY MD 11/10/24 Hydrocodone-Acetaminophen (Hydrocodone Bitartrate/AC 5-325 mg) 1 Tab Tab, 1 TAB PO Q8HPRN PRN for 3 Days, #9 TAB Prov:CLEMENCIA JERRY MD 11/10/24 Current Medications Current Medications Medications (Trade) Dose Ordered Sig/Finn Route PRN Reason Start Time Stop Time Status Last Admin Ceftriaxone Sodium 50 ml @ 100 mls/hr DAILY@09 IV 12/27/24 09:00 12/27/24 09:51 Aspirin (Ecotrin Enteric Coated Tablet) 81 mg DAILY PO 12/27/24 10:00 12/27/24 09:51 EZETIMIBE (Zetia) 10 mg DAILY PO 12/27/24 10:00 12/27/24 11:15 DC Levothyroxine Sodium (Synthroid Tablet) 25 mcg QAM@0600 PO 12/27/24 06:00 Lisinopril (Zestril Tablet) 10 mg DAILY PO 12/27/24 10:00 Phenazopyridine HCl (Pyridium Tablet) 100 mg TIDWM PO 12/27/24 12:00 12/27/24 12:03 Polyethylene Glycol (Miralax 17GM Powder) 17 gm DAILYPRN PRN PO FOR CONSTIPATION 12/28/24 10:00 EZETIMIBE (Zetia) 10 mg HS PO 12/27/24 22:00 Vital Signs Vital Signs Date Time Temp Pulse Resp B/P (MAP) Pulse Ox O2 Delivery O2 Flow Rate FiO2 12/27/24 13:00 98.0 70 15 114/65 (81) 99 98.0 12/27/24 08:00 Room Air* 0 21 Physical Exam DERMATOLOGIC EXAM: - Skin is warm, smooth, and supple bilaterally. - No erythema noted to the foot and ankle bilaterally. - No hyperkeratotic lesions noted bilaterally. - No other discolorations, lesions, or open wounds noted bilaterally. VASCULAR EXAM: - DP and PT pulses are palpable bilaterally. - CULLET TRUCKER is brisk to all digits. - No edema noted to the leg, foot, and ankle bilaterally. NEUROLOGIC EXAM: - Normal light touch sensation to the superficial peroneal, deep peroneal, sural, saphenous, and tibial nerve branches. - Protective sensation is intact as tested with a 5.07 10g [place] Monofilament bilaterally. - No paresthesia noted on percussion of Tibial Nerve in the Tarsal Tunnel bilaterally. MUSCULOSKELETAL EXAM: - incisions healing appropriately - Muscle strength is 5/5 and active motion is pain-free and symmetrical bilaterally with plantarflexion, dorsiflexion, abduction, adduction, inversion, and eversion against resistance. - No pain or crepitus with passive range of motion bilaterally to all major pedal joints. Labs/Diagnostic Data Labs Test 12/27/24 05:08 12/26/24 03:45 Range/Units White Blood Count 5.2 # 4.4-10.8 10^3/uL Red Blood Count 3.91 L 4.0-5.20 10^6/uL Hemoglobin 12.5 12.2-16.2 g/dL Hematocrit 36.6 # 36.0-46.0 % Mean Corpuscular Volume 93.5 80.0-100.0 fL Mean Corpuscular Hemoglobin 31.9 28.0-32.0 pg Mean Corpuscular Hemoglobin Concent 34.1 32.0-36.0 g/dL Red Cell Distribution Width 13.1 11.8-14.3 % Platelet Count 354 140-450 10^3/uL Mean Platelet Volume 8.1 6.9-10.8 fL Neutrophils (%) (Auto) 45.1 37.0-80.0 % Lymphocytes (%) (Auto) 41.5 10.0-50.0 % Monocytes (%) (Auto) 10.1 0.0-12.0 % Eosinophils (%) (Auto) 2.0 0.0-7.0 % Basophils (%) (Auto) 1.3 0.0-2.0 % Neutrophils # (Auto) 2.3 1.6-8.6 10 ^3/uL Lymphocytes # (Auto) 2.1 0.4-5.4 10 ^3/uL Monocytes # (Auto) 0.5 0-1.3 10 ^3/uL Eosinophils # (Auto) 0.1 0-0.8 10 ^3/uL Basophils # (Auto) 0.1 0-0.2 10 ^3/uL Nucleated Red Blood Cells 0.0 % Sodium Level 141 136-145 mmol/L Potassium Level 3.6 3.5-5.1 mmol/L Chloride Level 106 98-107 mmol/L Carbon Dioxide Level 27 20-31 mmol/L Anion Gap 8 5-15 Blood Urea Nitrogen 7 L 9-23 mg/dL Creatinine 0.72 0.550-1.02 mg/dL Glomerular Filtration Rate Calc 89 >90 mL/min BUN/Creatinine Ratio 9.7 L 10.0-20.0 Serum Glucose 98 74-106 mg/dL Calcium Level 9.6 8.7-10.4 mg/dL Total Bilirubin 0.6 0.2-1.0 mg/dL Aspartate Amino Transferase (AST) 17 13-40 U/L Alanine Aminotransferase (ALT) 15 7-40 U/L Alkaline Phosphatase 46 46-116 U/L Total Protein 5.9 5.7-8.2 g/dL Albumin 3.9 3.2-4.8 g/dL Urine Color Light-yellow Yellow Urine Clarity Clear Clear Urine pH 5.5 5.0-9.0 Urine Specific [place] 1.015 1.001-1.035 Urine Protein Negative Negative Urine Ketones Negative Negative Urine Blood Negative Negative /uL Urine Nitrite Negative Negative Urine Bilirubin Negative Negative Urine Urobilinogen Normal Negative mg/dL Urine Leukocyte Esterase 2+ Negative /uL Urine RBC <1 0 - 4 /hpf Urine Microscopic WBC 20 H 0-5 /HPF Urine Squamous Epithelial Cells Few <5 /hpf Urine Bacteria None seen None Seen /hpf Urine Mucus Few None Seen Urine Glucose Normal Normal mg/dL Microbiology Date/Time Source Procedure Growth Status 12/26/24 03:45 Urine - Midstream Clean Catch Urine Culture - Preliminary Resulted Problems(with codes): (1) Trimalleolar fracture (2) Cellulitis (3) Gastroenteritis (4) Cat bite (5) NSTEMI (non-ST elevated myocardial infarction) (6) Acute cystitis (7) Pyelonephritis (8) UTI (urinary tract infection) (9) Complicated UTI (urinary tract infection) Plan/Recommendation ASSESSMENT: Patient is a 69-year-old seen in the floor postop from a right ankle ORIF PLAN: - The patients chart was reviewed, clinical findings were discussed with the patient, the etiologies of the conditions were discussed in detail, and a treatment plan was agreed to at this time, with both oral and written instructions provided. - discussed with the patient that the incision appears to be healing appropriately - patient can put minimal pressure using the cam boot - we will follow up with me in 1 week take get repeat x-rays - patient has good range of motion All questions were answered and concerns addressed to the patient's satisfaction. The patient was given the phone number to the clinic and was told how to make contact with the clinic should any concerns or questions arise. Patient understands that if any questions or concerns arise prior to the next appointment, we should be contacted immediately. FOLLOW-UP: Patient will follow up with me after discharge from hospital Plan discussed with: Patient Date of Service: Dec 27, 2024 Billing Provider: SURESH ZEPEDA DPM Common Visit Codes: [id number] INP/OBS CARE(HIGH) SURESH ZEPEDA DPM Dec 27, 2024 15:08
[2024-12-27] MEDS: EZETIMIBE 10 MG TAB PO SCH (21:31)
[2024-12-28] VITALS (7 sets, daily range): BP systolic 108–134; BP diastolic 37–77; PULSE 69–84; RESP 16–20; TEMP 97.7–98.8; O2SAT 90–98
[2024-12-28] MEDS ORDERED: POLYETHYLENE GLYCOL 17 GM PWDR PO PRN (10:00)
--- NOTE | 2024-12-28 15:04 | DVHPN2 ---
Subjective No new complaints Changes from previous H/P or p: Changes Eyes: No Pain, No Vision change, No Conjunctivae inflammation, No Eyelid inflammation, No Other, No Redness ENT: No Ear pain, No Ear discharge, No Nose pain, No Nose discharge, No Nose congestion, No Mouth pain, No Mouth swelling, No Throat pain, No Throat swelling, No Other Cardiovascular: No Chest Pain, No Palpitations, No Orthopnea, No Paroxysmal Noc. Dyspnea, No Edema, No Lt Headedness, No Other Respiratory: No Cough, No Dry, No Shortness of breath, No SOB with excertion, No Wheezing, No Hemoptysis, No Pleuritic Pain, No Sputum, No Other Gastrointestinal: No Nausea, No Vomiting, No Abdominal Pain, No Diarrhea, No Constipation, No Melena, No Hematochezia, No Other Genitourinary: Dysuria, Frequency; No Incontinence, No Hematuria, No Retention; Other (urgency) Musculoskeletal: No other, No neck pain, No shoulder pain, No arm pain, No back pain, No hand pain, No leg pain, No foot pain Skin: No Rash, No Lesions, No Jaundice, No Bruising, No Other Objective Vitals Vital Signs Date Time Temp Pulse Resp B/P (MAP) Pulse Ox O2 Delivery O2 Flow Rate FiO2 12/28/24 13:00 98.2 84 20 134/77 (96) 90 98.2 12/28/24 08:00 Room Air* 0 21 Intake/Output Intake and Output 12/28/24 07:00 Intake Total 1200 ml Balance 1200 ml Intake Oral 1150 ml IV Total 50 ml # Voids 9 # Bowel Movements 1 General Appearance: Alert, Oriented X3, Cooperative Lungs: Clear to auscultation, Normal air movement Cardiovascular: Regular rate, Normal S1, Normal S2 Abdomen: Normal bowel sounds, Soft Extremities: No edema Medications Current Medications Medications Dose Ordered Sig/Finn Route Start Time Stop Time Status Last Admin Dose Admin Acetaminophen/ Hydrocodone Bitart 1 tab Q4HP PRN PO 12/26/24 10:45 12/27/24 17:08 1 TAB Ondansetron HCl 4 mg Q4HP PRN IV 12/26/24 10:45 Docusate Sodium 100 mg BIDPRN PRN PO 12/26/24 10:45 Acetaminophen 650 mg Q6HP PRN PO 12/26/24 10:45 Ceftriaxone Sodium 50 ml @ 100 mls/hr DAILY@09 IV 12/27/24 09:00 12/28/24 08:50 100 MLS/HR Aspirin 81 mg DAILY PO 12/27/24 10:00 12/28/24 08:50 81 MG Levothyroxine Sodium 25 mcg QAM@0600 PO 12/27/24 06:00 Lisinopril 10 mg DAILY PO 12/27/24 10:00 12/28/24 11:59 10 MG Phenazopyridine HCl 100 mg TIDWM PO 12/27/24 12:00 12/28/24 11:59 100 MG Polyethylene Glycol 17 gm DAILYPRN PRN PO 12/28/24 10:00 EZETIMIBE 10 mg HS PO 12/27/24 22:00 12/27/24 21:31 10 MG Laboratory Results Laboratory Tests 12/27/24 05:08 Urinalysis Test 12/26/24 03:45 Urine Color Light-yellow (Yellow) Urine Clarity Clear (Clear) Urine pH 5.5 (5.0-9.0) Urine Specific [place] 1.015 (1.001-1.035) Urine Protein Negative (Negative) Urine Ketones Negative (Negative) Urine Blood Negative /uL (Negative) Urine Nitrite Negative (Negative) Urine Bilirubin Negative (Negative) Urine Urobilinogen Normal mg/dL (Negative) Urine Leukocyte Esterase 2+ /uL (Negative) Urine RBC <1 /hpf (0 - 4) Urine Microscopic WBC 20 /HPF (0-5) H Urine Squamous Epithelial Cells Few /hpf (<5) Urine Bacteria None seen /hpf (None Seen) Urine Mucus Few (None Seen) Urine Glucose Normal mg/dL (Normal) Microbiology Microbiology Date/Time Source Procedure Growth Status 12/27/24 20:35 Nose MRSA Screen - Final Complete 12/27/24 10:58 Urine - Catheterized Urine Culture - Preliminary Resulted Assessment/Plan Assessment/Plan UTI HTN, Mixed hyperipidemia Hyperparathyroidism s/p Right ankle fracture & ORIF 2 months ago PLAN: IV Rocephin Urine C&S Consult podiatry Ful code Advanced directives discussed x 16 minutes 12/28/2024 Urine culture is pending Continue IV Rocephin Podiatry consult appreciated Right lower extremity partial weight-bearing with a cam boot Full code Monitor closely Plan discussed with: Patient Date of Service: Dec 28, 2024 Billing Provider: DALIA CHRISTIANSON MD Common Visit Codes: [id number] INP/OBS CARE(HIGH) DALIA CHRISTIANSON MD Dec 28, 2024 15:04
[2024-12-29] VITALS (7 sets, daily range): BP systolic 102–124; BP diastolic 59–75; PULSE 69–82; RESP 16–18; TEMP 97.7–98.8; O2SAT 93–97
--- NOTE | 2024-12-29 11:08 | DVHPN2 ---
Subjective No new complaints Changes from previous H/P or p: Changes Eyes: No Pain, No Vision change, No Conjunctivae inflammation, No Eyelid inflammation, No Other, No Redness ENT: No Ear pain, No Ear discharge, No Nose pain, No Nose discharge, No Nose congestion, No Mouth pain, No Mouth swelling, No Throat pain, No Throat swelling, No Other Cardiovascular: No Chest Pain, No Palpitations, No Orthopnea, No Paroxysmal Noc. Dyspnea, No Edema, No Lt Headedness, No Other Respiratory: No Cough, No Dry, No Shortness of breath, No SOB with excertion, No Wheezing, No Hemoptysis, No Pleuritic Pain, No Sputum, No Other Gastrointestinal: No Nausea, No Vomiting, No Abdominal Pain, No Diarrhea, No Constipation, No Melena, No Hematochezia, No Other Genitourinary: Dysuria, Frequency; No Incontinence, No Hematuria, No Retention; Other (urgency) Musculoskeletal: No other, No neck pain, No shoulder pain, No arm pain, No back pain, No hand pain, No leg pain, No foot pain Skin: No Rash, No Lesions, No Jaundice, No Bruising, No Other Objective Vitals Vital Signs Date Time Temp Pulse Resp B/P (MAP) Pulse Ox O2 Delivery O2 Flow Rate FiO2 12/29/24 09:00 113/73 12/29/24 08:00 78 17 96 Room Air* 0 21 12/29/24 05:00 98.1 98.1 Intake/Output Intake and Output 12/29/24 06:59 Intake Total 2100 ml Balance 2100 ml Intake Oral 2050 ml IV Total 50 ml # Voids 13 # Bowel Movements 1 General Appearance: Alert, Oriented X3, Cooperative Lungs: Clear to auscultation, Normal air movement Cardiovascular: Regular rate, Normal S1, Normal S2 Abdomen: Normal bowel sounds, Soft Extremities: No edema Medications Current Medications Medications Dose Ordered Sig/Finn Route Start Time Stop Time Status Last Admin Dose Admin Acetaminophen/ Hydrocodone Bitart 1 tab Q4HP PRN PO 12/26/24 10:45 12/27/24 17:08 1 TAB Ondansetron HCl 4 mg Q4HP PRN IV 12/26/24 10:45 Docusate Sodium 100 mg BIDPRN PRN PO 12/26/24 10:45 Acetaminophen 650 mg Q6HP PRN PO 12/26/24 10:45 Ceftriaxone Sodium 50 ml @ 100 mls/hr DAILY@09 IV 12/27/24 09:00 12/29/24 09:00 100 MLS/HR Aspirin 81 mg DAILY PO 12/27/24 10:00 12/29/24 09:00 81 MG Levothyroxine Sodium 25 mcg QAM@0600 PO 12/27/24 06:00 Lisinopril 10 mg DAILY PO 12/27/24 10:00 12/28/24 11:59 10 MG Phenazopyridine HCl 100 mg TIDWM PO 12/27/24 12:00 12/29/24 09:00 100 MG Polyethylene Glycol 17 gm DAILYPRN PRN PO 12/28/24 10:00 EZETIMIBE 10 mg HS PO 12/27/24 22:00 12/28/24 21:25 10 MG Laboratory Results Laboratory Tests 12/27/24 05:08 Urinalysis Test 12/26/24 03:45 Urine Color Light-yellow (Yellow) Urine Clarity Clear (Clear) Urine pH 5.5 (5.0-9.0) Urine Specific [place] 1.015 (1.001-1.035) Urine Protein Negative (Negative) Urine Ketones Negative (Negative) Urine Blood Negative /uL (Negative) Urine Nitrite Negative (Negative) Urine Bilirubin Negative (Negative) Urine Urobilinogen Normal mg/dL (Negative) Urine Leukocyte Esterase 2+ /uL (Negative) Urine RBC <1 /hpf (0 - 4) Urine Microscopic WBC 20 /HPF (0-5) H Urine Squamous Epithelial Cells Few /hpf (<5) Urine Bacteria None seen /hpf (None Seen) Urine Mucus Few (None Seen) Urine Glucose Normal mg/dL (Normal) Microbiology Microbiology Date/Time Source Procedure Growth Status 12/27/24 20:35 Nose MRSA Screen - Final Complete 12/27/24 10:58 Urine - Catheterized Urine Culture - Preliminary Resulted Assessment/Plan Assessment/Plan UTI HTN, Mixed hyperipidemia Hyperparathyroidism s/p Right ankle fracture & ORIF 2 months ago PLAN: IV Rocephin Urine C&S Consult podiatry Ful code Advanced directives discussed x 16 minutes 12/28/2024 Urine culture is pending Continue IV Rocephin Podiatry consult appreciated Right lower extremity partial weight-bearing with a cam boot Full code Monitor closely 12/29/2024: Continue the current management pending the urine culture Order physical therapy Pain management as needed Plan discussed with: Patient Date of Service: Dec 29, 2024 Billing Provider: DALIA CHRISTIANSON MD Common Visit Codes: [id number] INP/OBS CARE(MOD) DALIA CHRISTIANSON MD Dec 29, 2024 11:08
[2024-12-30 01:00] VITALS: BP 117/73; PULSE 73; RESP 17; TEMP 97.8; O2SAT 93
[2024-12-30 05:00] VITALS: BP 118/72; PULSE 77; RESP 17; TEMP 98; O2SAT 96
[2024-12-30 08:00] VITALS: PULSE 76; O2SAT 98
[2024-12-30 09:14] VITALS: BP 121/82; PULSE 78; RESP 18; TEMP 97.9; O2SAT 95
[2024-12-30] MEDS ORDERED: CEFD300C2 PO (12:25)
[2024-12-30] MEDS ORDERED: ESTR0.1C5 VA (12:34)
[2024-12-30 12:35] VITALS: BP 121/82
[2024-12-30 13:00] VITALS: BP 123/72; PULSE 70; RESP 18; TEMP 98.7; O2SAT 96
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
== END 2024-12-30 13:35 | disposition home or self-care (01) | DRG 690 ==
LOC: ER 03:39 → OVERFLOW 10:35 → WEST WING 17:55
PROVIDERS: ADMIT Student in an Organized Health Care Education/Training Program; ATTEND Student in an Organized Health Care Education/Training Program
DX: N30.00 Acute cystitis without hematuria (principal); I10 Essential (primary) hypertension; E78.2 Mixed hyperlipidemia; I25.10 Atherosclerotic heart disease of native coronary artery without angina pectoris; N95.2 Postmenopausal atrophic vaginitis; E03.9 Hypothyroidism, unspecified; Z88.0 Allergy status to penicillin; Z79.82 Long term (current) use of aspirin; Z79.899 Other long term (current) drug therapy; Z90.49 Acquired absence of other specified parts of digestive tract
CPT/HCPCS: 36415; 74176; 80048; 80053; 81001; 85025; 87081; 87086; 96365; 96366; 96367; 97110; 97116; 97163; 97530; 99291; G0378; J3490; J7060

== ENCOUNTER 2025-04-07 09:05 | Emergency (ER) | payer MEDICARE ==
[~2025-04-07] VITALS: Ht 154.9 cm; Wt 49.3 kg
[~2025-04-07 09:05] MED LIST changes: -ACET-1882 PO; -DOXY100C79 PO; +ESTR0.1C5 VA; -HYDR-4902 PO; -HYDR1TAB97 PO; -LISI20TA56 PO
[2025-04-07 10:03] LABS: Urine Protein, UAD Negative (Negative)
--- NOTE | 2025-04-07 10:05 | ED.PDOC ---
History of Present Illness HPI Comments 69-year-old female presents to the ER with prior medical history of CAD, high lipids, hypertension, UTI, IBS: Surgical history of cholecystectomy and a chief complaint of abdominal pain. Patient reports on having diffuse abdominal cramping with normal stool with all these symptoms that come and go for past month. Patient states on having a PCP who informed the patient to go to the ER due from her having to use the bathroom 3-4 times today. Patient notes the she has a scheduled CT scan in three days but had an ultrasound of her bladder which was good. Patient notes taking Bentyl this morning which helped. Denies chills, fever, N/V/D, SOB, CP. No other associated symptoms, modifiers, recent injuries or sick contacts present at this time. Chief Complaint: Abdominal Pain Time Seen by MD: 09:30 Primary Care Provider: [place] Reviewed Notes: Nurses Notes, Medications, Allergies Allergies: Coded Allergies: Penicillins (Verified Allergy, Severe, 04/19/23) Home Meds Active Scripts Estradiol Vaginal (Estradiol) 0.1 Mg/Gm Cre, 0.1 MG VA DAILY for 14 Days, #1 CRE Prov:DAVID CAMEJO MD 12/30/24 Cefdinir (Cefdinir) 300 Mg Cap, 1 CAP PO BID for 7 Days, #14 CAP Prov:DAVID CAMEJO MD 12/30/24 Aspirin (Aspir-81) 81 Mg Tab, 1 TAB PO DAILY for 14 Days, #14 TAB 0 Refills Prov:CLEMENCIA JERRY MD 11/10/24 Levothyroxine Sodium (Levothyroxine Sodium) 25 Mcg Tab, 25 MCG PO QAM@0600 for 30 Days, #30 TAB Prov:CLEMENCIA JERRY MD 11/10/24 Atorvastatin Calcium (ATORVASTATIN CALCIUM) 20 Mg Tab, 20 MG PO HS for 30 Days, #30 TAB Prov:CLEMENCIA JERRY MD 11/10/24 Reported Medications Lisinopril & Hydrochlorothiazi (Lisinopril/Hydrochlorothi) 1 Tab Tab, 1 TAB PO DAILY for 90 Days, #90 [LISINOPRIL/HCTZ 10/12.5 MG] 12/27/24 Cholecalciferol (VITAMIN D3) 2,000 Unit Tab, 1 CAP PO DAILY for 90 Days, #90 12/27/24 Ezetimibe (Zetia) 10 Mg Tab, 1 TAB PO DAILY, #30 TAB 5 Refills 11/09/24 Information Source: Patient Mode of Arrival: Ambulatory Severity: Moderate Timing: Months Duration: Since onset Prehospital treatment: None Past Medical History PAST MEDICAL HISTORY: CAD, High Lipids, HTN, UTI'S Past Medical History (Other): IBS Surgical History: Cholecystectomy [employer] History: Denies all [employer] Hx Family History Family History: Reviewed,noncontributory to illness, Unknown Social History Smoker: Non-Smoker Alcohol: Denies ETOH Use Drugs: Denies Drug Use Lives In: Home Constitutional: denies: chills, diaphoresis, fatigue, fever, malaise, sweats, weakness, others EENTM: denies: blurred vision, double vision, ear bleeding, ear discharge, ear drainage, ear pain, ear ringing, eye pain, eye redness, hearing loss, mouth pain, mouth swelling, nasal discharge, nose bleeding, nose congestion, nose pain, photophobia, tearing, throat pain, throat swelling, voice changes, others Respiratory: denies: cough, hemoptysis, orthopnea, SOB at rest, shortness of breath, SOB with excertion, stridor, wheezing, others Cardiovascular: denies: chest pain, dizzy spells, diaphoresis, Dyspnea on exertion, edema, irregular heart beat, left arm pain, lightheadedness, palpitations, PND, syncope, others Gastrointestinal: reports: abdominal pain; denies: abdomen distended, blood streaked bowels, constipated, diarrhea, dysphagia, difficulty swallowing, hematemesis, melena, nausea, poor appetite, poor fluid intake, rectal bleeding, rectal pain, vomiting, others Genitourinary: denies: abnormal vagina bleeding, burning, dyspareunia, dysuria, flank pain, frequency, hematuria, incontinence, pain, , vagina discharge, urgency, others Neurological: denies: dizziness, fainting, headache, left sided numbness, left sided weakness, numbness, paresthesia, pre-existing deficit, right sided numbness, right sided weakness, seizure, speech problems, tingling, tremors, weakness, others Musculoskeletal: denies: back pain, gout, joint pain, joint swelling, muscle pain, muscle stiffness, neck pain, others Integumetry: denies: bruises, change in color, change in hair/nails, dryness, laceration, lesions, lumps, rash, wounds, others Allergic/Immunocompromised: denies: Difficulty Healing, Frequent Infections, Hives, Itching, others Hematologic/Lymphatic: denies: anemia, blood clots, easy bleeding, easy bruising, swollen glands, others Endocrine: denies: excessive hunger, excessive sweating, excessive thirst, excessive urination, flushing, intolerance to cold, intolerance to heat, unexplained weight gain, unexplained weight loss, others Psychiatric: denies: anxiety, bipolar disorder, depression, hopeless, panic disorder, schizophrenia, sleepless, suicidal, others All Other Systems: Reviewed and Negative Physical Exam General Appearance: No Apparent Distress, Normal HEENT: Normal ENT Inspection, Pharynx Normal, TMs Normal Neck: Full Range of Motion, Non-Tender, Normal, Normal Inspection Respiratory: Chest Non-Tender, Lungs Clear, No Accessory Muscle Use, No Re spiratory Distress, Normal Breath Sounds Cardiovascular: No Edema, No JVD, No Murmur, No Gallop, Normal Peripheral Pulses, Regular Rate/Rhythm Breast Exam: Deferred Gastrointestinal: No Organomegaly, Non Tender, No Pulsatile Mass, Normal Bowel Sounds, Soft Genitalia: Deferred Pelvic: Deferred Rectal: Deferred Extremities: No calf tenderness, Normal capillary refill, Normal inspection, Normal range of motion, Non-tender, No pedal edema Musculoskeletal : Apperance: Normal Neurologic: Alert, hazardous waste material technician II-XII nml as Tested, No Motor Deficits, Normal Affect, Normal Mood, No Sensory Deficits Cerebellar Function: Normal Reflexes: Normal Skin: Dry, Normal Color, Warm Lymphatic: No Adenopathy Was a procedure done? Was a procedure done?: No Differential Dx Considerations may include: Electrolyte abnormality, infectious etiology X-Ray, Labs, Meds, VS Vital Signs Date Time Temp Pulse Resp B/P (MAP) Pulse Ox O2 Delivery O2 Flow Rate FiO2 04/07/25 09:20 98.1 92 16 131/91 (104) 96 98.1 Lab Test 04/07/25 10:00 04/07/25 09:19 Range/Units White Blood Count 8.4 4.4-10.8 10^3/uL Red Blood Count 4.40 4.0-5.20 10^6/uL Hemoglobin 13.9 12.2-16.2 g/dL Hematocrit 41.1 36.0-46.0 % Mean Corpuscular Volume 93.5 80.0-100.0 fL Mean Corpuscular Hemoglobin 31.5 28.0-32.0 pg Mean Corpuscular Hemoglobin Concent 33.7 32.0-36.0 g/dL Red Cell Distribution Width 14.3 11.8-14.3 % Platelet Count 410 140-450 10^3/uL Mean Platelet Volume 7.8 6.9-10.8 fL Neutrophils (%) (Auto) 69.1 37.0-80.0 % Lymphocytes (%) (Auto) 22.4 10.0-50.0 % Monocytes (%) (Auto) 7.1 0.0-12.0 % Eosinophils (%) (Auto) 0.6 0.0-7.0 % Basophils (%) (Auto) 0.8 0.0-2.0 % Neutrophils # (Auto) 5.8 1.6-8.6 10 ^3/uL Lymphocytes # (Auto) 1.9 0.4-5.4 10 ^3/uL Monocytes # (Auto) 0.6 0-1.3 10 ^3/uL Eosinophils # (Auto) 0.1 0-0.8 10 ^3/uL Basophils # (Auto) 0.1 0-0.2 10 ^3/uL Nucleated Red Blood Cells 0.0 % Sodium Level 141 136-145 mmol/L Potassium Level 3.7 3.5-5.1 mmol/L Chloride Level 106 98-107 mmol/L Carbon Dioxide Level 28 20-31 mmol/L Anion Gap 7 5-15 Blood Urea Nitrogen 7 L 9-23 mg/dL Creatinine 0.60 0.550-1.02 mg/dL Glomerular Filtration Rate Calc 96 >90 mL/min BUN/Creatinine Ratio 11.7 10.0-20.0 Serum Glucose 100 74-106 mg/dL Calcium Level 9.5 8.7-10.4 mg/dL Urine Color Colorless Yellow Urine Clarity Clear Clear Urine pH 6.0 5.0-9.0 Urine Specific [place] 1.003 1.001-1.035 Urine Protein Negative Negative Urine Ketones Negative Negative Urine Blood Negative Negative /uL Urine Nitrite Negative Negative Urine Bilirubin Negative Negative Urine Urobilinogen Normal Negative mg/dL Urine Leukocyte Esterase Negative Negative /uL Urine RBC <1 0 - 4 /hpf Urine Microscopic WBC < 1 0-5 /HPF Urine Squamous Epithelial Cells Few <5 /hpf Urine Bacteria Few H None Seen /hpf Urine Glucose Normal Normal mg/dL Time of 1ST Reevaluation: 10:00 Reevaluation 1ST: Unchanged Patient Education/Counseling: Diagnosis, Treatment, Prognosis Family Education/Counseling: No Family Present SEPSIS Sepsis Screen Date sepsis recognized/suspect: Apr 07, 2025 Time Sepsis recognized/suspect: 914 Recent Procedure: No On Antibiotic Therapy: No Respiratory Rate >20: No Heart Rate >90: Yes Temp<36 C (96.8 F) or >38.3 C: No SBP <90 or MAP <65 mmHG: No New Acute Mental Status Change: No Is the patient on CPAP, BIPAP,: No Vital Signs Date Time Temp Pulse Resp B/P (MAP) Pulse Ox O2 Delivery O2 Flow Rate FiO2 04/07/25 09:20 98.1 92 16 131/91 (104) 96 98.1 Laboratory Tests Test 04/07/25 10:00 White Blood Count 8.4 10^3/uL (4.4-10.8) Departure 1 Departure Time of Disposition: 10:50 (Patient's workup was benign. We will discharge patient home with outpatient follow up) Impression: Primary Impression: IBS (irritable bowel syndrome) Qualified Codes: K58.0 - Irritable bowel syndrome with diarrhea Disposition: 01 HOME / SELF CARE / HOMELESS Condition: Stable Additional Instructions: Your workup today was benign. You can take Tylenol or Motrin as needed for pain. You should follow up with your regular doctor within 1 week. You should stay well rested and well hydrated. If your symptoms worsen or you have any other concerns please return to the emergency room. Critical Care Note Critical Care Time?: No Stability Stability form required: No I personally scribed for KOURTNEY PEDERSEN MD ([email or web address]) on 04/07/25 at 10:05. Electronically submitted by Kun Baez ([email or web address]). KOURTNEY PEDERSEN MD Apr 07, 2025 10:05
[2025-04-07 10:18] LABS: Chloride 106 mmol/L (98-107); Potassium 3.7 mmol/L (3.5-5.1); Sodium 141 mmol/L (136-145)
[2025-04-07 10:19] LABS: Anion Gap 7 (5-15); Calcium 9.5 mg/dL (8.7-10.4); Carbon Dioxide 28 mmol/L (20-31)
[2025-04-07 10:23] LABS: Hematocrit 41.1 % (36.0-46.0); Hemoglobin 13.9 g/dL (12.2-16.2); Mean Corpuscular Hemoglobin 31.5 pg (28.0-32.0); Mean Corpuscular Volume 93.5 fL (80.0-100.0); Nucleated Red Blood Cells % 0.0 %
[2025-04-07 10:24] LABS: BUN/Creatinine Ratio 11.7 (10.0-20.0); Blood Urea Nitrogen 7 mg/dL (9-23); Glucose 100 mg/dL (74-106)
[2025-04-07 10:59] VITALS: BP 144/82; PULSE 75; RESP 15; TEMP 98; O2SAT 99
== END 2025-04-07 11:01 | disposition home or self-care (01) ==
LOC: ER 09:05
DX: K58.9 Irritable bowel syndrome, unspecified (principal); E78.5 Hyperlipidemia, unspecified; I10 Essential (primary) hypertension; I25.10 Atherosclerotic heart disease of native coronary artery without angina pectoris; Z79.82 Long term (current) use of aspirin; Z79.890 Hormone replacement therapy; Z79.899 Other long term (current) drug therapy; Z87.440 Personal history of urinary (tract) infections; Z88.0 Allergy status to penicillin; Z90.49 Acquired absence of other specified parts of digestive tract
CPT/HCPCS: 36415; 80048; 81001; 85025; 99283; J7030